=== PATIENT | female | born 2000 | race Caucasian/White ===

== ENCOUNTER 2023-12-01 08:49 | Outpatient (AMB) | payer OTHER, SELFPAY ==
--- OUTSIDE RECORDS SUMMARY | 2023-12-01 08:51 | XMS_ITS | Continuity of Care Document ---
Author Organization [facility] Address [address] [place] [address]- Care Team Providers Care Life Skills Teacher Name Role Phone Abram DE LA O, Minerva Primary Care Physician [phone] Encounter [facility] [place] Date(s): 10/26/19 - 10/26/[address] [address]- [facility] Discharge Disposition: A-D/C Walkout Attending Physician: Not on Staff, Attending MD Admitting Physician: Not on Staff, Admitting MD Referring Physician: Not on Staff, Referring MD Allergies, Adverse Reactions, Alerts Substance Reaction Severity Status lidocaine Active Milk Products Active Other Environmental Allergy 1 Active Coconut Active 1Nitrile Medications ibuprofen 200 mg oral tablet 4 tablets, By Mouth, Every 6 hours, Refills 0, Maintenance, 05/31/19 8:35:00 EDT Start Date: 05/31/19 Status: Ordered ondansetron 4 mg oral tablet, disintegrating 1 tablet = 4 mg, By Mouth, Every 8 hours, PRN as needed for nausea/vomiting, # 6 tablet, 0 Refills,Maintenance, 06/01/19 20:44:00 EDT, DIS Tablet, [facility], 163, cm, 06/01/19 19:48:00 EDT, Height, 117.9, kg, 06/01/19 19:48:00 EDT, Dry... Start Date: 06/01/19 Stop Date: 06/03/19 Status: Ordered Vital Signs Most recent to oldest [Reference Range]: 1 2 3 Weight 115.3 kg (10/26/19 8:10 PM) 115.3 kg (10/26/19 8:04 PM) 115.3 kg (10/26/19 8:03 PM) Oxygen Saturation [94-100 %] 100 % (10/26/19 8:04 PM) 96 % (10/26/19 8:01 PM) Pulse Rate [55-90 bpm] 83 bpm (10/26/19 8:04 PM) 85 bpm (10/26/19 8:01 PM) Blood Pressure [90-138/55-84 mm Hg] 148/79mm Hg *H* (10/26/19 8:04 PM) Respiratory Rate [16-30 br/min] 20 br/min (10/26/19 8:04 PM) 18 br/min (10/26/19 8:01 PM) Temperature [96.8-100.4 DegF] 98.5 DegF (10/26/19 8:04 PM) Mode of Delivery (Oxygen) Room air (10/26/19 8:04 PM) Room air (10/26/19 8:01 PM) Blood pressure sites Arm, right (10/26/19 8:04 PM) Temperature Route Oral (10/26/19 8:04 PM) Dry Weight 115.3 kg (10/26/19 8:10 PM) 115.3 kg (10/26/19 8:04 PM) 115.3 kg (10/26/19 8:03 PM) Weight Obtained Via Standing scale (10/26/19 8:03 PM) Dry Weight Obtained Via Standing scale (10/26/19 8:03 PM) Social History Social History Type Response Smoking Status Never (less than 100 in lifetime) entered on: 05/31/19 Sex
--- OUTSIDE RECORDS SUMMARY | 2023-12-01 08:51 | XMS_ITS | Continuity of Care Document ---
Author Organization [facility] Address [address] [place] [phone]- Care Team Providers Care Superintendent Storage Area Name Role Phone Minerva Valverde NP Primary Care Physician Encounter [facility] [place] Date(s): 08/12/19 - 08/12/[address] [address]- [facility] Encounter Diagnosis Right hand weakness(Final) - 08/12/19 Discharge Disposition: A-D/C Home Attending Physician: Jodi Donald MD Admitting Physician: Jodi Donald MD Referring Physician: Not on Staff, Referring [...] oldest [Reference Range]: 1 2 3 Weight 121.7 kg (08/12/19 11:20 AM) 121.7 kg (08/12/19 8:05 AM) 121.7 kg (08/12/19 7:18 AM) Oxygen Saturation [94-100 %] 100 % (08/12/19 11:20 AM) 99 % (08/12/19 8:05 AM) 100 % (08/12/19 7:18 AM) Pulse Rate [55-90 bpm] 74 bpm (08/12/19 11:20 AM) 85 bpm (08/12/19 8:05 AM) 95 bpm *H* (08/12/19 7:18 AM) Blood Pressure [90-138/55-84 mm Hg] 129/70mm Hg (08/12/19 11:20 AM) 157/81mm Hg *H* (08/12/19 8:05 AM) 182/77mm Hg *H* (08/12/19 7:18 AM) Respiratory Rate [16-30 br/min] 18 br/min (08/12/19 11:20 AM) 16 br/min (08/12/19 8:05 AM) 24 br/min (08/12/19 7:18 AM) Temperature [96.8-100.4 DegF] 97.8 DegF (08/12/19 11:20 AM) 98.5 DegF (08/12/19 8:05 AM) 98.1 DegF (08/12/19 7:18 AM) Mode of Delivery (Oxygen) Room air (08/12/19 11:20 AM) Room air (08/12/19 8:05 AM) Room air (08/12/19 7:18 AM) Blood pressure sites Arm, right (08/12/19 11:20 AM) Leg, left (08/12/19 8:05 AM) Leg, left (08/12/19 7:18 AM) Temperature Route Oral (08/12/19 11:20 AM) Oral (08/12/19 8:05 AM) Oral (08/12/19 7:18 AM) Dry Weight 121.7 kg (08/12/19 11:20 AM) 121.7 kg (08/12/19 8:05 AM) 121.7 kg (08/12/19 7:18 AM) Weight Obtained Via Standing scale (08/12/19 1:01 AM) Dry Weight Obtained Via Standing scale (08/12/19 1:01 AM) Social History Social History Type Response Smoking Status Never (less than 100 in lifetime) entered on: 05/31/19 Sex
--- NOTE | 2023-12-01 09:08 | AM.OFFWIN_ITS ---
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 Started Wednesday Patient Tobacco Use Status: Never used Tobacco Allergies lidocaine Allergy (Intermediate, Verified 12/01/23 09:15) Tremors Do you need a note to return to daycare/school/sports/work: Yes HPI HPI Comments History of Present Illness Details Patient is a 23-year-old female with a past medical history of asthma complaining of a cough which she states is both dry and productive at times, head congestion, a sore throat like she is ?swallowing glass? and body aches on and off as well as some diarrhea. She denies anything bloody or black in her diarrhea, she also denies fevers, chills, nausea or vomiting or shortness of breath. She has not had to use her inhaler more than necessary and states she is actually out of her inhaler and is requesting a prescription for a new 1. She states she has been managing her symptoms with NyQuil because that seems to help her be able to sleep at night. 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 [facility] Social History Patient Tobacco Use Status: Never used Tobacco Review of Systems Const All systems reviewed & are unremarkable except as noted in HPI and below Physical Exam Vital Signs: Last Vital Signs Temp 98.0 F 12/01/23 09:11 Pulse 87 12/01/23 09:11 BP 118/70 12/01/23 09:11 Pulse Ox 97 12/01/23 09:11 Oxygen Delivery Method Room Air 12/01/23 09:11 BMI result Body Mass Index 29.3 Const General: cooperative, healthy appearing, comfortable and no acute distress Orientation/consciousness: patient oriented x3 Limitations: no limitations HEENT Head: Yes normal to inspection Ears: hearing grossly normal bilaterally, external ears normal and TM's normal bilaterally General nose exam: Normal external nose present, Normal nares present and No nasal discharge present Face and sinus: Yes normal facial exam and Yes sinuses nontender Mouth: Normal oral and palatal mucosa present and moist mucous membranes Throat: Yes tonsils normal, Yes uvula midline and Yes posterior oropharynx abnormal (Erythema) Eyes General: appearance normal, both eyes and all related structures Neck Neck: Yes normal visual inspection Resp Effort & Inspection: normal respiratory effort, able to speak in complete sentences, no respiratory distress, not tachypneic, no tripod positioning and no use of accessory muscles Auscultation: clear to auscultation bilaterally Cardio Rate: regular rate Rhythm: regular rhythm Heart sounds: normal S1 and S2 Skin General skin exam: no rashes or lesions noted Neuro General: patient oriented x3 Extrem General: Yes normal to inspection and Yes no clubbing, cyanosis or edema Results AMB Rapid Strep AMB Rapid Strep Negative Last Edit by Aleksandar Huerta CMA on 12/01/23 09:26 Assessment & Plan Assessment & Plan (1) URI (upper respiratory infection): Code(s): J06.9 - Acute upper respiratory infection, unspecified Plan: Rapid strep in office is negative. Vital signs are stable, patient is well- appearing, lungs are clear, likely a viral upper respiratory infection. Sent for flu COVID and RSV testing. Plan See above Orders: Orders AMB Rapid Strep Screen Today Z13.9 - Encounter for screening, unspecified SARS-CoV2/FLU/RSV Today J06.9 - Acute upper respiratory infection, unspecified Medications: New albuterol sulfate 90 mcg/actuation (Ventolin HFA) 2 puffs inhalation Q4-6H PRN 8.5 grams 0RF shortness of breath or wheezing Coding Level of Care Code New Pt Level 3 (87784) Diagnoses URI (upper respiratory infection) J06.9
[2023-12-01 09:11] VITALS: BP 118/70; PULSE 87; TEMP 36.7; O2SAT 97; BMI 29.3
== END 2023-12-01 12:49 | disposition home or self-care (01) ==
PROVIDERS: PCP Pediatrics; Visit Provider Physician Assistant
DX: Z13.9 Encounter for screening, unspecified (principal); J06.9 Acute upper respiratory infection, unspecified

== ENCOUNTER 2023-12-01 08:49 | Outpatient (REF) | payer OTHER, SELFPAY ==
[2023-12-01 11:41] LABS: Influenza A PCR NEGATIVE (Negative); Influenza B PCR NEGATIVE (Negative); Resp Syncy Virus RNA Qual PCR NEGATIVE (Negative); SARS COV2 PCR INHOUSE NEGATIVE (Negative)
== END 2023-12-01 08:50 | disposition home or self-care (01) ==
LOC: HO.LAB 08:49
PROVIDERS: PCP Pediatrics; Visit Provider Physician Assistant
DX: J06.9 Acute upper respiratory infection, unspecified (principal)
CPT/HCPCS: 0241U; 87880

== ENCOUNTER 2024-03-09 09:01 | Outpatient (REF) | payer OTHER, SELFPAY ==
[2024-03-09 14:25] LABS: Influenza A PCR NEGATIVE (Negative); Influenza B PCR NEGATIVE (Negative); Resp Syncy Virus RNA Qual PCR NEGATIVE (Negative); SARS COV2 PCR INHOUSE NEGATIVE (Negative)
== END 2024-03-09 09:02 | disposition home or self-care (01) ==
LOC: HO.LAB 09:01
PROVIDERS: PCP Pediatrics; Visit Provider Registered Nurse
DX: J06.9 Acute upper respiratory infection, unspecified (principal)
CPT/HCPCS: 0241U

== ENCOUNTER 2024-03-09 09:01 | Outpatient (AMB) | payer OTHER, SELFPAY ==
--- NOTE | 2024-03-09 09:19 | MHC.OFFWIV ---
Intake Vital Signs 03/09/24 09:20 Height 5 ft 4 in Weight 175 lb BMI 30.0 BP 138/80 Blood Pressure Location Rt brachial Position Sitting Pulse 85 Pulse Source Pulse Oximeter Temp 99.0 F Temp Source Oral Pulse Oximetry (%) 98 Oxygen Delivery Method Room Air Intake Visit Reasons: EP congestion, vomiting, flu symptoms Intake Note: Patient here for congestion,body aches, hot flashes that has been present for 1 week. Patient Tobacco Use Status: Never used Tobacco Allergies lidocaine Allergy (Intermediate, Verified 03/09/24 09:21) Tremors Do you need a note to return to daycare/school/sports/work: Yes HPI EP congestion, vomiting, flu symptoms HPI Details This note is constructed using voice recognition software. While every effort has been made to ensure accuracy, head of insight errors may have been included. The patient is a 23 year old female who presents to the clinic today with congestion, body aches, subjective fever, nausea and vomiting for the past week. She has not had any vomiting since yesterday, but does still have nausea. She denies shortness of breath, does have cough. She is taking a store brand Mucinex to help with secretions which seemed to help a bit. She also notes some mild epigastric tenderness, which seems to be worse after all the vomiting that she did. She had an prescription of Zofran which she has been trying which seems to help. She would like a refill of the Zofran. Additionally she requests a refill of her albuterol inhaler, which is , as she has a history of respiratory symptoms, which have not been present on this illness. Her sick exposures include her boyfriend whom she lives with who is present for visit today as well. [facility] Social History Patient Tobacco Use Status: Never used Tobacco Review of Systems Const All systems reviewed & are unremarkable except as noted in HPI and below Physical Exam Vital Signs: Last Vital Signs Temp 99.0 F 03/09/24 09:20 Pulse 85 03/09/24 09:20 BP 138/80 03/09/24 09:20 Pulse Ox 98 03/09/24 09:20 Oxygen Delivery Method Room Air 03/09/24 09:20 BMI result Body Mass Index 30.0 Const General: cooperative, healthy appearing, comfortable and no acute distress Orientation/consciousness: patient oriented x3 Limitations: no limitations HEENT Head: Yes normal to inspection Ears: hearing grossly normal bilaterally, external ears normal and TM's normal bilaterally General nose exam: Normal external nose present, Normal nares present and No nasal discharge present Face and sinus: Yes normal facial exam and Yes sinuses nontender Mouth: Normal oral and palatal mucosa present and moist mucous membranes Throat: Yes tonsils normal, Yes uvula midline and Yes posterior oropharynx abnormal (Erythema) Eyes General: appearance normal, both eyes and all related structures Neck Neck: Yes normal visual inspection Resp Effort & Inspection: normal respiratory effort, able to speak in complete sentences, Actively coughing, no respiratory distress, not tachypneic, no tripod positioning and no use of accessory muscles Auscultation: clear to auscultation bilaterally Cardio Jugular venous distension: no JVD Rate: regular rate Rhythm: regular rhythm Heart sounds: S1 normal heart sound present, S2 normal heart sound present, no click, no gallops, no murmurs and no rubs GI Inspection: Yes normal to inspection Palpation (GI): Soft to palpation and Tenderness to palpation present (GI) in the epigastrum Percussion: Yes normal to percussion Auscultation: normal bowel sounds Skin General skin exam: no rashes or lesions noted, elasticity normal and turgor normal Neuro General: patient oriented x3 Extrem General: Yes normal to inspection and Yes no clubbing, cyanosis or edema Assessment & Plan Assessment & Plan (1) URI (upper respiratory infection): Code(s): J06.9 - Acute upper respiratory infection, unspecified Qualifiers: URI type: unspecified URI Qualified Code(s): J06.9 - Acute upper respiratory infection, unspecified Plan: Viral swab obtained to rule out Covid, Influenza, and RSV based on symptoms. Advised mask wearing while symptomatic and quarantine per current CDC guidelines. Reviewed at home support methods including hydration, humidification, vix vapor rub, sinus rinse, and otc treatment options. Discussed treatment with antiviral therapy for covid with paxlovid and with Tamiflu for influenza, including appropriate use and side effects, and need to start medication within 5 day of symptom onset, preferably within 48 hours of symptom onset. Patient is outside of treatment window timeline for antiviral therapy. Prescription sent for Zofran for symptomatic management of nausea, and albuterol in the event she should develop any respiratory symptoms as she needed a refill. Advised follow up with worsening symptoms such as dyspnea at rest, which would require emergent evaluation. (2) Acid reflux: Code(s): K21.9 - Gastro-esophageal reflux disease without esophagitis Qualifiers: Esophagitis presence: without esophagitis Qualified Code(s): K21.9 - Gastro-esophageal reflux disease without esophagitis Plan: Likely secondary to viral illness. Advised avoidance acidic foods, carbonated beverages, large meals, or anything to eat or drink within 2-3 hours of lying down. Consider trial famotidine for at least 2 weeks, for symptomatic management and then p.r.n. after that. Advised patient to follow up worsening or failure to resolve. Plan See above for full details and plan. Orders: Orders SARS-CoV2/FLU/RSV Today J06.9 - Acute upper respiratory infection, unspecified Medications: New ondansetron 4 mg PO Q8H PRN 15 tabs 0RF nausea and vomiting Refilled albuterol sulfate 90 mcg/actuation (Ventolin HFA) 2 puffs inhalation Q4-6H PRN 8.5 grams 0RF shortness of breath or wheezing Coding Level of Care Code Est Pt Level 3 (54425) Diagnoses Upper respiratory tract infection, unspecified type J06.9 URI type: unspecified URI Gastroesophageal reflux disease without esophagitis K21.9 Esophagitis presence: without esophagitis
[2024-03-09 09:20] VITALS: BP 138/80; PULSE 85; TEMP 37.2; O2SAT 98
== END 2024-03-09 10:08 | disposition home or self-care (01) ==
PROVIDERS: PCP Pediatrics; Visit Provider Registered Nurse
DX: J06.9 Acute upper respiratory infection, unspecified (principal); K21.9 Gastro-esophageal reflux disease without esophagitis

== ENCOUNTER 2024-03-29 08:10 | Outpatient (AMB) | payer OTHER, SELFPAY ==
--- OUTSIDE RECORDS SUMMARY | 2024-03-29 08:13 | XMS_ITS | Encounter Summary ---
Author Organization [facility] Address [address] [place] [phone] Phone Care Team Providers Care Electrical Systems Designer Name Role Phone Lashell Cage MD Primary Care Provider [phone] Encounter Details Date Type Department Care Team (Late st Contact Info) Description 04/08/2016 Documentation [facility] [place] [address] [place] [address] Family Medicine, Physician [address] [place] [address] Social History Tobacco Use Types Packs/Day Years Used Date Smoking Tobacco: Never Comments:Never smoker Comments Unknown Sex and Gender Information Value Date Recorded Sex Assigned at Not on file Legal Sex Female 5:16 PM EDT Gender Identity Not on file Sexual Orientation Not on file documented as of this encounter Plan of Treatment Not on file documented as of this encounter Visit Diagnoses Not on filedocumented in this encounter Care Teams Electrical Systems Designer Relationship Specialty Start Date End Date Lashell Cage MD PCP - General Pediatrics 10/06/19 06/18/22 documented as of this encounter
--- OUTSIDE RECORDS SUMMARY | 2024-03-29 08:13 | XMS_ITS | Clinical Summary ---
Author Organization [facility] [address] [place] [address] [place] [phone] Phone Care Team Providers Care Carroting Machine Offbearer Name Role Phone Kary Elias Primary Care Provider Allergies Active Allergy Reactions Criticality Noted Date Comments Coconut Oil 09/13/2020 Lidocaine 09/13/2020 Other Reaction(s): OTHER Tremors and body aches from lidocaine patch Other 09/13/2020 Gloves NITRILE Medications Medication Sig Dispensed Refills Start Date End Date Status fluconazole (DIFLUCAN) 150 mg tablet Take one tablet every 3 days for 3 doses 08/18/2023 Active clotrimazole-betametha sone (LOTRISONE) 1-0.05 % cream Twice daily for two weeks. 08/18/2023 08/12/2024 Active doxycycline (MONODOX) 100 mg capsule 12/30/2021 Active ACETAMINOPHEN ORAL Take by mouth. Ac tive albuterol HFA (PROAIR HFA ; PROVENTIL HFA ; VENTOLIN HFA) 90 mcg/actuation inhaler Inhale 2 Puffs into the lungs every 6 hours as needed for Cough or Wheezing. INHALE 2 PUFFS 4 TIMES A DAY NEEDED FOR WHEEZING 09/25/2021 Active clotrimazole (LOTRIMIN) 1 % cream Apply bid to affected area 09/25/2021 Active ferrous sulfate 325 mg (65 mg elemental iron) tablet Take by mouth. Active medroxyPROGESTERone 150 mg/mL injectionIndications:E ncounter for contraceptive management, unspecified type Inject 1 mL (150 mg total) into the shoulder, thigh, or buttocks every 3 (three) months. 1 mL 2 01/11/2024 Active Active Problems Problem Noted Date Diagnosed Date Cutaneous candidiasis 08/18/2023 Vaginal discharge 08/18/2023 Asthma 11/20/2020 Lumbar spine scoliosis 11/20/2020 Encounters Date Type Department Care Team Description 01/14/2024 4:00 PM EST Clinical Support Obstetrics and Gynecology [address] [phone] Surveillance for Depo-Provera contraception (Primary Dx) from Last 3 Months Immunizations Name Administration Dates Next Due HPV 9-valent (Gardisil) 9yo to less than 46yo 07/16/2021 Influenza Quadravalent, MDCK , 0.5ml, preservative free (Flucelvax) 6mo and older 11/02/2019,10/20/2018 Influenza trivalent, with pr eservative (Fluzone; Afluria) 6mo and older 02/25/2022,01/20/2018,06/02/2017,01/08 Influenza, Unspecified 11/06/2020,04/02/2015 Meningococcal B, Recombinant (Trumenba) 16yo to less than 24yo 10/26/2018 Meningococcal MCV4P 06/02/2017 Surgical History Surgery Date Site/Laterality Comments KNEE SURGERY 2014 Right PROCEDURE: HISTORICAL KNEE SURGERY WISDOM TOOTH EXTRACTION Bilateral PROCEDURE: HISTORICAL WISDOM TEETH EXTRACTION Medical History Medical History Date Comments Patient denies medical problems DX:Patient denies medical problems Hx of migraines DX:Hx of migrain es; COMMENT: With Aura Family History Medical History Relation Name Comments Hypertension Mother Breast cancer Mother's side 2 great aunts Leukemia Other cousins Colon cancer Neg Hx Ovarian cancer Neg Hx Uterine cancer Neg Hx Relation Name Status Comments Maternal Grandfather Alive Maternal Grandmother Alive Mother Alive Mother's side Alive Other Paternal Grandfather Paternal Grandmother Alive Social History Tobacco Use Types Packs/Day Years Used Date Smoking Tobacco: Never Smokeless Tobacco: Never Alcohol Use Standard Drinks/Week Comments Not Currently 0 (1 standard drink = 0.6 oz pur e alcohol) Sex and Gender Information Value Date Recorded Sex Assigned at Not on file Gender Identity Not on file Sexual Orientation Not on file Job Start Date Occupation Industry Not on file Not on file Not on file Obstetrics History Last Filed Vital Signs Vital Sign Reading Time Taken Comments Blood Pressure 120/72 08/18/2023 4:08 PM EDT Pulse 89 08/18/2023 4:08 PM EDT Temperature - - Respiratory Rate - - Oxygen Saturation - - Inhaled Oxygen Concentration - - Weight 75.6 kg (166 lb 9.6 oz) 08/18/2023 4:08 P M EDT Height 162.6 cm (5' 4 ) 08/18/2023 4:08 PM EDT Body Mass Index 28.6 08/18/2023 4:08 PM EDT Plan of Treatment Health Maintenance Due Date Last Done Comments DTaP,Tdap,and Td Vaccines (7 - Td or Tdap) 10/11/2021 10/12/2011, 12/26/2003, 06/07/2001, Additional history exists Cholesterol Screening (Lipid Panel) 02/08/2022 Depression Screening 02/08/2022 HIV Screening 02/08/2022 Hepatitis C Screening 02/08/2022 Social Influencers of Health Screening 02/08/2022 Gonorrhea/Chlamydia Screening 07/16/2022 07/16/2021 COVID-19 Vaccine ( season) 2023 Influenza Vaccine (#1) 2023 , 12/09/2020, 11/06/2020, Additional history exists Cervical Cancer Screening: Pap Smear 12/31/2024 12/31/2021 Hepatitis B Vaccines Completed 09/14/2000, 01/07/2000, 1999 HIB Vaccines Completed 03/09/2001, 06/06, 04/22/2000, Additional history exists IPV Vaccines Completed 12/26/2003, 04/2001, 04/22/2000, Additional history exists MMR Vaccines Completed 12/26/2003, 11/30/2000 Varicella Vaccines Completed 10/06/2010, 11/30/2000 Hepatitis A Vaccines Completed 12/20/2013, 10/07/19 Meningococcal ACWY Vaccine Completed 06/02/2017, HPV Vaccines Completed 07/16/2021, 09/06, 07/29/2020, Additional history exists Pneumococcal Vaccine: Pediatrics (0 to 5 Years) and At-Risk Patients (6 to 64 Years) Completed 01/05/2023, 03/09/2001, 06/15/2000, Additional history exists RSV Immunization Patients Under 20 months Aged Out No longer eligible based on patient's age to complete this topic Procedures Procedure Name Priority Date/Time Associated Diagnosis Comments PAP SMEAR Routine 12/31/2021 GONORRHEA/CHLAMYDIA SCRREENING Routine 07/16/2021 from Last 3 Months or Most Recently Relevant to Health Maintenance Results * Pap Smear (12/31/2021) Pap smear abstracted; negative Historical Provider MD DAXA Dietz * Gonorrhea/Chlamydia Screening (07/16/2021) Gonorrhea/Chla mydia Screening abstracted Historical Provider MD DAXA Dietz from Last 3 Months or Most Recently Relevant to Health Maintenance Care Teams Carroting Machine Offbearer Relationship Specialty Start Date End Date Kary Elias PA [address] [place] [address] PCP - General 07/21/23
--- OUTSIDE RECORDS SUMMARY | 2024-03-29 08:13 | XMS_ITS | Encounter Summary ---
Author Organization [facility] Address [address] [place] [phone] Phone Care Team Providers Care Environmental Geologist Name Role Phone Lashell Cage MD Primary Care Provider [phone] Encounter Details Date Type Department Care Team (Late st Contact Info) Description 06/17/2015 Documentation [facility] [place] Family Medicine [address] [place] [address] Family Medicine, Physician [address] [place] [address] Social History Tobacco Use Types Packs/Day Years [...] on filedocumented in this encounter Care Teams Environmental Geologist Relationship Specialty Start Date End Date Lashell Cage MD PCP - General Pediatrics 10/06/19 06/18/22 documented as of this encounter
--- OUTSIDE RECORDS SUMMARY | 2024-03-29 08:13 | XMS_ITS | Encounter Summary ---
Author Organization [facility] Address [address] [place] [phone] Phone Care Team Providers Care Paediatric Physiotherapist Name Role Phone Lashell Cage MD Primary Care Provider [phone] Encounter Details Date Type Department Care Team (Late st Contact Info) Description 04/20/2016 Documentation [facility] [place] [address] [place] [address] Family Medicine, Physician [address] [place] [address] Social History Tobacco Use Types Packs/Day Years [...] on filedocumented in this encounter Care Teams Paediatric Physiotherapist Relationship Specialty Start Date End Date Lashell Cage MD PCP - General Pediatrics 10/06/19 06/18/22 documented as of this encounter
--- OUTSIDE RECORDS SUMMARY | 2024-03-29 08:13 | XMS_ITS | Clinical Summary ---
Author Organization [facility] Address [address] [place] [phone] Phone Care Team Providers Care Putty Mixer Name Role Phone Unavailable Primary Care Provider Unavailabl e Allergies Active Allergy Reactions Criticality Noted Date Comments Coconut (Cocos Nucifera) Other (see comments) Medium 1 03/26/2018 Food reaction Coconut Fragrance Hives Medium 01/24/2019 Lactose Intolerance (Gi) 06/02/2017 Other 10/06/2019 Nitrile gloves Medications Etonogestrel (NEXPLANON) 68 MG implant Inject under the skin. Active Active Problems Problem Noted Date Diagnosed Date Nexplanon in place 09/02/2019 Body mass index > 99% for ag e, obese child, tertiary care intervention 09/23/2009 Immunizations Name Administration Dates Next Due DTaP 5 12/26/2003, 2,06/15/2000,04/22,02/12/2000 HPV, Quadrivalent 10/18/2012,12/15/2011,10/12/19 12 Hep A, ped/adol 12/20/2013,10/06/2010 Hep B, ped/adol 09/14/2000,01/07/2000,1999 Hib (PRP-T) 03/09/2001, 1,04/22/2000,02/11 IPV 12/26/2003, 2,04/22/2000,02/11 Influenza, injectable, quadrivalent 01/09/2016 Influenza, injectable, quadr ivalent, preservative free 10/20/2018,01/20/2018,06/02/2017,12/20 Influenza, injectable, trivalent 02/17/2006 Influenza, intranasal, quadrivalent 04/02/2015 Influenza, intranasal, trivalent 11/27/2011 MMR 12/26/2003,11/30/2000 Meningococcal B Trumenba 10/26/2018 Meningococcal Conj (Menactra) MCV4P 06/02/2017,0 10/12/2011 Pneumococcal Conjugate 03/09/2001,2000,04/22/2000,02/11 Tdap 10/12/2011 Varicella 10/06/2010,11/30/2000 Family History Medical History Relation Name Comments No Known Problems Maternal Grandmother No Known Problems Mother Ashli Galarza Relation Name Status Comments Father Avinash Gatica Alive Maternal Grandmother Alive Materna l grandmother: Asthma Mother Ashli Galarza Alive Mother: Asthm a Other Family history of Obesity, Family history of Diabetes mellitus, Family history of Autism Social History Tobacco Use Types Packs/Day Years Used Date Smoking Tobacco: Never Smokeless Tobacco: Current Comments:Never smoker Hunger/Food Answer Date Recorded In the last 12 months, did y ou or your family ever eat less than you felt you should because there wasn't enough money for food? No 10/26/2018 Stable Housing Answer Date Recorded Are you worried that in the next 2 months you may not have stable housing? No 10/26/2018 Transportation Concerns Answer Date Rec orded In the last 12 months, have you or your family ever had to go without healthcare because you didn't have a way to get there? No 10/26/2018 Hazards in Home Answer Date Recorded Think about the place you li ve. Do you have problems with any of the following? Pests (mice or roaches), mold, no/not working smoke detectors, water leaks, no window guards. No 2018 Financing Utilities Answer Date Recorde d In the last 12 months, has t he electric, gas, oil, or water company threatened to shut off your services in your home? No 10/26/2018 Safety at Home Answer Date Recorded Are you or your family worried about feeling saf e in your home? No 10/26/2018 Outside Support Answer Date Recorded Do you feel that you need mo re support from other people or programs to help you care for yourself or your family? No 10/26/2018 Understanding Health Concerns Answer Da te Recorded Do you need help understandi ng your or your child's healthcare needs (diagnosis, medications, plan, etc.)? No 10/26/2018 Financing Health Concerns Answer Date R ecorded In the last 12 months, was t here a time when your child needed to see a doctor or get medications or supplies but could not because of cost? No 10/26/2018 Missing School or Work Answer Date Rupert rded Did you or your child miss s chool or work because of a health problem that could have been avoided? No 10/26/2018 Comments No Sex and Gender Information Value Date Recorded Sex Assigned at Not on file Legal Sex Female 5:16 PM EDT Gender Identity Not on file Sexual Orientation Not on file Last Filed Vital Signs Vital Sign Reading Time Taken Comments Blood Pressure 130/80 10/06/2019 3:12 PM EDT Pulse 108 10/06/2019 3:12 PM EDT Temperature 36.1 ??C (96.9 ??F) 10/24/2019 2:27 PM ED T Respiratory Rate 20 10/04/2018 3:40 PM EDT Oxygen Saturation 99% 01/24/2019 4:14 PM EST Inhaled Oxygen Concentration - - Weight 116 kg (255 lb 1 oz) 10/24/2019 2:27 PM E DT Height 161.3 cm (5' 3.5 ) 10/26/2018 5:27 PM EDT Body Mass Index 44.47 10/26/2018 5:27 PM EDT Plan of Treatment Health Maintenance Due Date Last Done Comments Men B Vaccine (2 of 2 - Trum enba SCDM 2-dose series) 04/28/2019 10/26/2018 DTaP,Tdap,and Td Vaccines (7 - Td or Tdap) 10/11/2021 10/12/2011, 12/26/2003, 06/07/2001, Additional history exists Influenza Vaccines (#1) 2023 12/10/19, 11/02/2019, 10/20/2018, Additional history exists COVID-19 Vaccine ( - 2023-2 5 season) 2023 Hepatitis B Vaccines Completed 09/14/2000, 01/07/2000, 1999 HIB Vaccines Completed 03/09/2001, 06/06, 04/22/2000, Additional history exists Pneumococcal Vaccine Completed 03/09/2001, 06/15/2000, 04/22/2000, Additional history exists IPV Vaccines Completed 12/26/2003, 04/2001, 04/22/2000, Additional history exists MMR Vaccines Completed 12/26/2003, 11/30/2000 Varicella Vaccines Completed 10/06/2010, 11/30/2000 Hepatitis A Vaccines Completed 12/20/2013, 10/07/19 11 Meningococcal Vaccine Completed 06/02/2017, 012 HPV Vaccines Completed 07/16/2021, 09/06, 07/29/2020, Additional history exists Procedures * Due to [place] [employer] law, this organization might not be sharing sensitive test results. Procedure Name Priority Date/Time Associated Diagnosis Comments CHLAMYDIA AND GONORRHEA, AMPLIFIED Routine 10/26/2018 5:59 PM EDT Screen for sexually transmitted diseases from Last 3 Months or Most Recently Relevant to Health Maintenance Results * Due to [place] [employer] law, this organization might not be sharing sensitive test results. * Chlamydia and Gonorrhoea, Amplified (10/26/2018 5:59 PM EDT) Chlamydia Trachomatis, DNA Probe NEGATIVE (NEG) [facility] Comment: No Chlamydia Trachomatis RNA detected in this patient's sample ? (REFERENCE RANGE/NORMAL VALUE: NOT DETECTED) ? Note: This test uses starcher and tenter range feeder- mediated amplification method to detect rRNA from C. Trachomatis URINE GC AMP PROBE NEGATIVE (NEG) [facility] Comment: No Neisseria Gonorrhoeae RNA detected in this patient's sample ? (REFERENCE RANGE/NORMAL VALUE: NOT DETECTED) ? NOTE: This test uses starcher and tenter range feeder-mediated amplification method to detect rRNA from N.Gonorrhoeae. A negative result does not preclude infection. In the case of a negative urine result, testing of an endocervical(female) or urethral (male) specimen is recommended if there is high clinical suspicion of infection. Due to very high sensitivity of Nucleic Acid Amplification Test, false positive results may occur. Therefore, specimen handling is extremely important. In patients in whom the disease is unlikely, additional sample for testing should be considered after an initial positive result. The performance characteristics of this test have not been evaluated in children. The Aptima Combo2 assay is not intended for the evaluation of suspected sexual abuse or for other medico-legal indications. The ordering provider should assess if the patient had consensual sex without risk of sexual abuse. Consult the [facility] if needed. Contact phone number . Therapeutic failure or success cannot be determined with the Aptima Combo2 assay since nucleic acid may persist following appropriate antimicrobial therapy. The Centers for Disease Control and Prevention (CDC) recommends confirmatory retesting using culture or a different nucleic acid amplification test when positive results occur, if indicated. Testing performed or reported by [facility], a Service of [facility], [address] [place] [address] Urine 10/26/2018 5:59 PM EDT 10/26/2018 8:16 PM EDT Andressa Valverde NP LAB MICROBIOLOGY - GENERAL OR DERABLES Final Result [facility] from Last 3 Months or Most Recently Relevant to Health Maintenance Insurance [facility] PPO
--- OUTSIDE RECORDS SUMMARY | 2024-03-29 08:13 | XMS_ITS | Encounter Summary ---
Author Organization [facility] Address [address] [place] [address] Phone Care Team Providers Care Bushing Press Operator Name Role Phone Lashell Cage MD Primary Care Provider [phone] Encounter Details Date Type Department Care Team (Late st Contact Info) Description 10/22/2016 Conversion Encounter [facility] - [address] [address] Social History Tobacco Use Types Packs/Day Years [...] on filedocumented in this encounter Care Teams Bushing Press Operator Relationship Specialty Start Date End Date Lashell Cage MD PCP - General Pediatrics 10/06/19 06/18/22 documented as of this encounter
--- OUTSIDE RECORDS SUMMARY | 2024-03-29 08:13 | XMS_ITS | Encounter Summary ---
Author Organization [facility] Address [address] [place] [address] Phone Care Team Providers Care Commercial Agent Name Role Phone Lashell Cage MD Primary Care Provider [phone] Encounter Details Date Type Department Care Team (Late st Contact Info) Description 07/30/2016 Documentation [facility] [place] Family Medicine [address] [place] [address] Family Medicine, Physician [address] [place] [address] Social History Tobacco Use Types Packs/Day Years [...] on filedocumented in this encounter Care Teams Commercial Agent Relationship Specialty Start Date End Date Lashell Cage MD PCP - General Pediatrics 10/06/19 06/18/22 documented as of this encounter
--- OUTSIDE RECORDS SUMMARY | 2024-03-29 08:13 | XMS_ITS | Encounter Summary ---
Author Organization [facility] Address [address] [place] [address] Phone Care Team Providers Care System Development Engineer Name Role Phone Lashell Cage MD Primary Care Provider [phone] Encounter Details Date Type Department Care Team (Late st Contact Info) Description 07/30/2016 Documentation [facility] [place] Family Medicine [address] [place] [address] Family Medicine, Physician [address] [place] [address] Social History Tobacco Use Types Packs/Day Years [...] on filedocumented in this encounter Care Teams System Development Engineer Relationship Specialty Start Date End Date Lashell Cage MD PCP - General Pediatrics 10/06/19 06/18/22 documented as of this encounter
--- OUTSIDE RECORDS SUMMARY | 2024-03-29 08:13 | XMS_ITS | Encounter Summary ---
Author Organization [facility] Address [address] [place] [address] Phone Care Team Providers Care Res Habilitation Assistant Name Role Phone Lashell Cage MD Primary Care Provider [phone] Encounter Details Date Type Department Care Team (Late st Contact Info) Description 05/13/2016 [place] [facility] [place] [address] [place] [address] Family Medicine, Physician [address] [place] [address] Social History Tobacco Use Types Packs/Day Years [...] on filedocumented in this encounter Care Teams Res Habilitation Assistant Relationship Specialty Start Date End Date Lashell Cage MD PCP - General Pediatrics 10/06/19 06/18/22 documented as of this encounter
[2024-03-29 08:14] VITALS: BP 122/80; PULSE 74; TEMP 36.9; O2SAT 98
--- NOTE | 2024-03-29 08:14 | AM.OFFWIN_ITS ---
Intake Vital Signs 03/29/24 08:14 Weight 178 lb BP 122/80 Blood Pressure Location Rt brachial Position Sitting Pulse 74 Pulse Source Pulse Oximeter Temp 98.4 F Temp Source Oral Pulse Oximetry (%) 98 Oxygen Delivery Method Room Air Intake Visit Reasons: EP-sinus issues follow with migrane Intake Note: Patient here for headache, congestion,vomiting, body aches that started Wednesday. Patient Tobacco Use Status: Never used Tobacco Allergies lidocaine Allergy (Intermediate, Verified 03/29/24 08:20) Tremors Do you need a note to return to daycare/school/sports/work: Yes HPI HPI Comments History of Present Illness Details This is a 23-year-old female with no stated past medical history presenting for evaluation of body aches, sinus congestion and cough that has been present for the past 1 month. 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 Patient has been using NyQuil and Mucinex without relief of her discomfort. Patient denies having any fevers, chills, otalgia, pharyngitis, chest pain or shortness of breath. [facility] Social History Patient Tobacco Use Status: Never used Tobacco Review of Systems Const All systems reviewed & are unremarkable except as noted in HPI and below Denies chills, Denies fatigue and Denies fever(s) Eyes Reports no additional complaints ENT Reports no additional complaints, Denies otalgia, Denies nasal discharge, Denies sinus pain, Reports sinus pressure and Denies sore throat Card Denies chest pain and Denies dyspnea Resp Reports cough, Denies dyspnea and Reports wheezing GI Reports no additional complaints Reports no additional complaints Musc Reports no additional complaints Skin/Breast Reports system reviewed and no additional complaints, except as documented Neuro Reports no additional complaints Psych Reports no additional complaints Endo Reports no additional complaints and Denies fatigue Isiah/Lymph Reports no additional complaints Aller/Immun Reports no additional complaints and Reports wheezing Physical Exam Vital Signs: Last Vital Signs Temp 98.4 F 03/29/24 08:14 Pulse 74 03/29/24 08:14 BP 122/80 03/29/24 08:14 Pulse Ox 98 03/29/24 08:14 Oxygen Delivery Method Room Air 03/29/24 08:14 Afebrile, no hypoxia Const General: cooperative, healthy appearing, comfortable, no acute distress, well developed, alert, awake and Physically active; No acute distress Nutritional Appearance: average body habitus Orientation/consciousness: patient oriented x3 Limitations: no limitations HEENT Head: Yes normal to inspection and Yes normocephalic Ears: hearing grossly normal bilaterally, TM's abnormal bilaterally (TMs bulging bilaterally, no erythema) and EAC's normal General nose exam: Normal external nose present Face and sinus: Yes normal facial exam Mouth: Normal oral and palatal mucosa present and moist mucous membranes Throat: Yes posterior oropharynx normal and No postnasal drainage Eyes General: appearance normal, both eyes and all related structures Neck Lymphatic: no lymphadenopathy noted Resp Auscultation: wheezes expiratory wheezes (bases bilaterally, no tachypnea) Cardio Rate: regular rate Rhythm: regular rhythm Neuro General: patient oriented x3 Psych Appearance: grossly normal Mental Status: mental status grossly normal Insight: Good insight present (Psych) Judgement: Good judgement present (Psych) Assessment & Plan Assessment & Plan (1) Bronchitis: Comment: Patient has already tested negative for the viral panel and has expiratory wheezes bilaterally. Patient will be discharged home with prednisone. Code(s): J40 - Bronchitis, not specified as acute or chronic Plan: Prednisone 40 mg daily x5 days; tea with honey for cough and Mucinex as needed. Medications: New prednisone 40 mg (2 x 20 mg) PO DAILY 10 tabs 0RF Coding Level of Care Code Est Pt Level 3 (55556) Diagnoses Bronchitis J40 Time Spent (min) 20
== END 2024-03-29 09:12 | disposition home or self-care (01) ==
PROVIDERS: PCP Pediatrics; Visit Provider Physician Assistant
DX: J40 Bronchitis, not specified as acute or chronic (principal)

== ENCOUNTER → 2024-03-29 08:10 | Outpatient (BNVA) | payer OTHER, SELFPAY | PROVIDERS: PCP Pediatrics; Visit Provider Physician Assistant ==

== ENCOUNTER 2024-04-25 08:34 | Outpatient (AMB) | payer OTHER, SELFPAY ==
--- NOTE | 2024-04-25 08:38 | MHC.OFFWIV ---
Intake Vital Signs 04/25/24 08:43 Height 5 ft 4 in Weight 181 lb BMI 31.1 BP 110/72 Blood Pressure Location Rt brachial Position Sitting Pulse 90 Pulse Source Pulse Oximeter Temp 98.6 F Temp Source Oral Pulse Oximetry (%) 98 Oxygen Delivery Method Room Air Intake Visit Reasons: EP coughed up blood/lblood in vomit/bloody nose Intake Note: Patient here for bloody nose, coughed up a blood clot , vomiting w/blood present. pt states it started last night but this morning it was bad. Patient Tobacco Use Status: Never used Tobacco Allergies lidocaine Allergy (Intermediate, Verified 04/25/24 08:44) Tremors Do you need a note to return to daycare/school/sports/work: Yes HPI HPI Comments History of Present Illness Details History of Present Illness - The patient is a 23-year-old female presenting with epistaxis. - Episodes of nasal bleeding started the previous night and resolved spontaneously after 5 to 10 minutes. - A subsequent morning episode lasted longer (20-30 minutes), with significant active bleeding. - History of iron-deficiency anemia diagnosed in 2019; patient has not adhered to iron supplement regimen due to side effects such as constipation. - Patient describes severe bleeding and noted emesis with bright red blood, absent of clots. - Later expectorated mucus contained a blood clot. - Currently not on anticoagulant therapy. - Bleeding resolved before clinical evaluation. Physical Exam General: Cooperative, healthy appearing, comfortable, no acute distress and well developed Orientation: Patient oriented x3 Limitations: No limitations Head: Normal to inspection Ears: Hearing grossly normal bilaterally Nose: Normal external nose present, no blood noted in nares Face and sinus: Normal facial exam Eyes: Appearance normal, both eyes and all related structures Neck: Normal visual inspection and Yes full ROM Respiratory: Normal respiratory effort and able to speak in complete sentences. Skin: No rashes or lesions noted Neuro: Patient oriented x3 Extremities: Normal to inspection [facility] Social History Patient Tobacco Use Status: Never used Tobacco Review of Systems Const All systems reviewed & are unremarkable except as noted in HPI and below Physical Exam Vital Signs: Last Vital Signs Temp 98.6 F 04/25/24 08:43 Pulse 90 04/25/24 08:43 BP 110/72 04/25/24 08:43 Pulse Ox 98 04/25/24 08:43 Oxygen Delivery Method Room Air 04/25/24 08:43 BMI result Body Mass Index 31.1 Assessment & Plan Assessment & Plan (1) Mild epistaxis: Code(s): R04.0 - Epistaxis Plan: Plan The management plan for the primary concern of epistaxis involved confirming the cessation of bleeding and recommending measures such as saline nasal spray and humidifier use to address the likely anterior nasal bleeding due to environmental dryness. Monitoring for recurrence was advised, and in case of bleeding, she should pinch her nose and lean forward to prevent blood ingestion. Considering her history of iron-deficiency anemia, while ongoing management was deferred to her primary care provider, attention was given to barriers to compliance such as constipation. She was given clear instructions on managing future episodes independently. Patient was informed and verbally consented to the use of an ambient scribe for clinic note documentation during this visit. Coding Level of Care Code New Pt Level 3 (51228) Diagnoses Mild epistaxis R04.0
[2024-04-25 08:43] VITALS: BP 110/72; PULSE 90; TEMP 37; O2SAT 98; BMI 31.1
--- OUTSIDE RECORDS SUMMARY | 2024-04-25 08:57 | XMS_ITS | Encounter Summary ---
Author Organization [facility] Address [address] [place] [address] Phone Care Team Providers Care Poem Writer Name Role Phone Lashell Cage MD Primary Care Provider Encounter Details Date Type Department Care Team (Late st Contact Info) Description 04/20/[address] [facility] [place] [address] [place] [address] Family Medicine, Physician [address] [place] [address] Social History Tobacco Use Types Packs/Day Years [...] on filedocumented in this encounter Care Teams Poem Writer Relationship Specialty Start Date End Date Lashell Cage MD PCP - General Pediatrics 10/06/19 06/18/22 documented as of this encounter
--- OUTSIDE RECORDS SUMMARY | 2024-04-25 08:57 | XMS_ITS | Encounter Summary ---
Author Organization [facility] Address [address] [place] [address] Phone Care Team Providers Care Material Hauler Name Role Phone Lashell Cage MD Primary Care Provider [phone] Encounter Details Date Type Department Care Team (Late st Contact Info) Description 10/22/2016 Conversion Encounter [facility] - [address] [address] Social History Tobacco Use Types Packs/Day Years [...] on filedocumented in this encounter Care Teams Material Hauler Relationship Specialty Start Date End Date Lashell Cage MD PCP - General Pediatrics 10/06/19 06/18/22 documented as of this encounter
--- OUTSIDE RECORDS SUMMARY | 2024-04-25 08:57 | XMS_ITS | Encounter Summary ---
Author Organization [facility] Address [address] [place] [address] Phone Care Team Providers Care Modern And Contemporary Art Curator Name Role Phone Lashell Cage MD Primary Care Provider [phone] Encounter Details Date Type Department Care Team (Late st Contact Info) Description 04/08/2016 Documentation [facility] [place] Medicine [address] [place] [address] Family Medicine, Physician [address] [place] [address] Social History Tobacco Use Types Packs/Day Years [...] on filedocumented in this encounter Care Teams Modern And Contemporary Art Curator Relationship Specialty Start Date End Date Lashell Cage MD PCP - General Pediatrics 10/06/19 06/18/22 documented as of this encounter
--- OUTSIDE RECORDS SUMMARY | 2024-04-25 08:57 | XMS_ITS | Clinical Summary ---
Author Organization [facility] Address [address] [place] [address] Phone Care Team Providers Care Drilling Fluids Specialist Name Role Phone Unavailable Primary Care Provider [...] obese child, tertiary care intervention 09/23/2009 Immunizations Immunization Administration Dates Next Due DTaP 5 12/26/2003, [...] Additional history exists Procedures * Due to [place] [employer] law, this organization might not be sharing sensitive test results. Procedure Name Priority Date/Time Associated Diagnosis Comments CHLAMYDIA AND GONORRHEA, AMPLIFIED Routine 10/26/2018 5:59 PM EDT Screen for sexually transmitted diseases from Last 3 Months or Most Recently Relevant to Health Maintenance Results * Due to [place] [employer] law, this organization might not be sharing sensitive test results. * Chlamydia and Gonorrhoea, Amplified (10/26/2018 5:59 PM EDT) Chlamydia Trachomatis, DNA Probe NEGATIVE (NEG) [facility] Comment: No Chlamydia Trachomatis RNA detected in this patient's sample ? (REFERENCE RANGE/NORMAL VALUE: NOT DETECTED) ? Note: This test uses procedure rn- mediated amplification method to detect rRNA from C. Trachomatis URINE GC AMP PROBE NEGATIVE (NEG) [facility] Comment: No Neisseria Gonorrhoeae RNA detected in this patient's sample ? (REFERENCE RANGE/NORMAL VALUE: NOT DETECTED) ? NOTE: This test uses procedure rn-mediated amplification method to detect rRNA from N.Gonorrhoeae. [...] without risk of sexual abuse. Consult the [facility] if needed. Contact phone number . Therapeutic failure or success cannot be determined with the Aptima Combo2 assay since nucleic acid may persist following appropriate antimicrobial therapy. The Centers for Disease Control and Prevention (CDC) recommends confirmatory retesting using culture or a different nucleic acid amplification test when positive results occur, if indicated. Testing performed or reported by [facility], a Service of [facility], [address] [place] [address] Urine 10/26/2018 5:59 PM EDT 10/26/2018 8:16 PM EDT Andressa Valverde NP LAB MICROBIOLOGY - GENERAL OR DERABLES Final Result [facility] from Last 3 Months or Most Recently Relevant to Health Maintenance Insurance [facility] PPO
--- OUTSIDE RECORDS SUMMARY | 2024-04-25 08:57 | XMS_ITS | Encounter Summary ---
Author Organization [facility] Address [address] [place] [address] Phone Care Team Providers Care Forming Machine Adjuster Name Role Phone Lashell Cage MD Primary Care Provider [phone] Encounter Details Date Type Department Care Team (Late st Contact Info) Description 07/30/2016 Documentation [facility] [place] Family Medicine [address] [place] [address] Family Medicine, Physician [address] [place] [address] Social History Tobacco Use Types Packs/Day Years [...] on filedocumented in this encounter Care Teams Forming Machine Adjuster Relationship Specialty Start Date End Date Lashell Cage MD PCP - General Pediatrics 10/06/19 06/18/22 documented as of this encounter
--- OUTSIDE RECORDS SUMMARY | 2024-04-25 08:57 | XMS_ITS | Encounter Summary ---
Author Organization [facility] Address [address] [place] [address] Phone Care Team Providers Care Learning Manager Name Role Phone Lashell Cage MD Primary Care Provider Encounter Details Date Type Department Care Team (Late st Contact Info) Description 05/13/2016 Documentation [facility] [place] Family Medicine [address] [place] [address] Family Medicine, Physician [address] [place] [address] Social History Tobacco Use Types Packs/Day Years [...] on filedocumented in this encounter Care Teams Learning Manager Relationship Specialty Start Date End Date Lashell Cage MD PCP - General Pediatrics 10/06/19 06/18/22 documented as of this encounter
--- OUTSIDE RECORDS SUMMARY | 2024-04-25 08:57 | XMS_ITS | Clinical Summary ---
Author Organization [facility] [address] [place] [address] [place] [phone] Phone Care Team Providers Care Mobile Architect Name Role Phone Kary Elias Primary Care Provider Allergies Active Allergy Reactions Criticality Noted Date Comments Coconut Oil 09/13/2020 Lidocaine 09/13/2020 Other Reaction(s): OTHER Tremors and body aches from lidocaine patch Other 09/13/2020 Gloves NITRILE Medications fluconazole (DIFLUCAN) 150 mg tablet Take one tablet every 3 days for 3 doses 4 Active clotrimazole-betam ethasone (LOTRISONE) 1-0.05 % cream Twice daily for two weeks. 4 08/13/19 25 Active doxycycline (MONODOX) 100 mg capsule 2 Active ACETAMINOPHEN ORAL Take by mouth. Active albuterol HFA (PROAIR HFA ; PROVENTIL HFA ; VENTOLIN HFA) 90 mcg/actuation inhaler Inhale 2 Puffs into the lungs every 6 hours as needed for Cough or Wheezing. INHALE 2 PUFFS 4 TIMES A DAY NEEDED FOR WHEEZING 2 Active clotrimazole (LOTRIMIN) 1 % cream Apply bid to affected area 2 Active ferrous sulfate 325 mg (65 mg elemental iron) tablet Take by mouth. Active medroxyPROGESTERon e 150 mg/mL injectionIndicatio ns:Encounter for contraceptive management, unspecified type Inject 1 mL (150 mg total) into the shoulder, thigh, or buttocks every 3 (three) months. 1 mL 2 4 Active Active Problems Problem Noted Date Diagnosed Date Cutaneous candidiasis 08/18/2023 Vaginal discharge 08/18/2023 Asthma 11/20/2020 Lumbar spine scoliosis 11/20/2020 Immunizations Name Administration Dates Next Due HPV [...] drink = 0.6 oz pur e alcohol) Comments Unknown Sex and Gender Information Value Date Recorded Sex Assigned at Not on file Legal Sex Female 12:05 AM EST Gender Identity Not on file Sexual Orientation Not on file Obstetrics History Last Filed [...] Health Maintenance Due Date Last Done Comments Meningococcal B Vacine (2 of 2 - Trumenba SCDM 2-dose series) 04/28/2019 10/26/2018 DTaP,Tdap,and Td [...] Pap smear abstracted; negative Historical Provider MD HEALTH MAINTENANCE Final Result * Gonorrhea/Chlamydia Screening (07/16/2021) Gonorrhea/Chla mydia Screening abstracted Historical Provider MD HEALTH MAINTENANCE Final Result from Last 3 Months or Most Recently Relevant to Health Maintenance Insurance [place] [employer] [facility] Care Teams Mobile Architect Relationship Specialty Start Date End Date Kary Elias PA [address] [place] [address] PCP - General 07/21/23
--- OUTSIDE RECORDS SUMMARY | 2024-04-25 08:57 | XMS_ITS | Encounter Summary ---
Author Organization [facility] Address [address] [place] [address] Phone Care Team Providers Care Winch Stripper Name Role Phone Lashell Cage MD Primary Care Provider [phone] Encounter Details Date Type Department Care Team (Late st Contact Info) Description 06/17/2015 Documentation [facility] [place] Family Medicine [address] [place] [address] Family Medicine, Physician [address] [place] [address] Social History Tobacco Use Types Packs/Day Years [...] on filedocumented in this encounter Care Teams Winch Stripper Relationship Specialty Start Date End Date Lashell Cage MD PCP - General Pediatrics 10/06/19 06/18/22 documented as of this encounter
--- OUTSIDE RECORDS SUMMARY | 2024-04-25 08:57 | XMS_ITS | Encounter Summary ---
Author Organization [facility] Address [address] [place] [address] Phone Care Team Providers Care Topographical Engineer Name Role Phone Lashell Cage MD Primary Care Provider [phone] Encounter Details Date Type Department Care Team (Late st Contact Info) Description 07/30/2016 Documentation [facility] [place] Family Medicine [address] [place] [address] Family Medicine, Physician [address] [place] [address] Social History Tobacco Use Types Packs/Day Years [...] on filedocumented in this encounter Care Teams Topographical Engineer Relationship Specialty Start Date End Date Lashell Cage MD PCP - General Pediatrics 10/06/19 06/18/22 documented as of this encounter
== END 2024-04-25 09:16 | disposition home or self-care (01) ==
PROVIDERS: PCP Pediatrics; Visit Provider Physician Assistant
DX: R04.0 Epistaxis (principal)

== ENCOUNTER → 2024-04-25 08:34 | Outpatient (BNVA) | payer OTHER, SELFPAY | PROVIDERS: PCP Pediatrics ==

== ENCOUNTER 2024-08-08 08:28 | Outpatient (AMB) | payer OTHER, SELFPAY ==
--- NOTE | 2024-08-08 08:31 | AM.OFFWIN_ITS ---
Intake Vital Signs 08/08/24 08:34 Height 5 ft 4 in Weight 168 lb BMI 28.8 BP 110/70 Blood Pressure Location Rt brachial Position Sitting Pulse 66 Pulse Source Pulse Oximeter Temp 98.7 F Temp Source Oral Pulse Oximetry (%) 98 Oxygen Delivery Method Room Air Intake Visit Reasons: EP sore throat, threw up mucus, fatigue Intake Note: Patient here for diarrhea, vomiting, mucus, dry throat, fatigue and body aches that has been present for about 1 week. Patient Tobacco Use Status: Never used Tobacco Allergies lidocaine Allergy (Intermediate, Verified 08/08/24 08:40) Tremors Do you need a note to return to daycare/school/sports/work: No HPI HPI Comments History of Present Illness Details History of Present Illness The patient is a 23-year-old female presenting with congestion which started this am. Approximately two weeks ago, she began to experience diarrhea and nausea. Her diarrheal episodes have not been consistent but are ongoing, accompanied by constipation at times. She also thinks that she has hemorrhoids. She has not had much of an appetite. She has body aches, and a slight cough. During the past two weeks, she also reports increased lethargy and worsening allergy symptoms. She has been having ear fullness, itchy throat, and congestion. She states that she has allergies. The patient is not on any regular allergy medications, although the intensity of her symptoms typically would warrant such. She experiences swelling on the right side of her throat but no palpable lymph nodes. She has been eating and drinking. She smokes marijuana. She has a boyfriend that she lives with who has similar symptoms and a co-worker who has covid. She has a home test and will take it today. She denies fever, chills, CP, SOB, abd pain, back pain, recent travel. She also has excessive sweating. She is looking for a prescription deodorant. She has not had labs for this or spoke to her PCP. Physical Exam General: Cooperative, healthy appearing, comfortable, no acute distress and well developed Head: Normal to inspection Ears: Cerumen noted in the right ear and TM not visualized. Cerumen noted in the left with half TM noted and normal. No tragus tenderness noted. Nose: Normal external nose present. Moist mucousa, turbinates normal. Face and sinus: Normal facial exam. No sinus tenderness noted. Neck: Normal visual inspection and Yes full ROM. No lymphadenopathy noted. Respiratory: Normal respiratory effort and able to speak in complete sentences. Clear to auscultation bilaterally Cardiovascular: Regular rate and rhythm. Normal S1 and S2 GI: Normal to inspection. Soft to palpation and nontender, patient reports diarrhea and constipation Skin: No rashes or lesions noted Patient was informed and verbally consented to the use of an ambient scribe for clinic note documentation during this visit. COUNT INCLUDES THE [facility] Social History Patient Tobacco Use Status: Never used Tobacco Review of Systems Const All systems reviewed & are unremarkable except as noted in HPI and below Physical Exam Vital Signs: Last Vital Signs Temp 98.7 F 08/08/24 08:34 Pulse 66 08/08/24 08:34 BP 110/70 08/08/24 08:34 Pulse Ox 98 08/08/24 08:34 Oxygen Delivery Method Room Air 08/08/24 08:34 BMI result Body Mass Index 28.8 Assessment & Plan Assessment & Plan (1) URI (upper respiratory infection): Code(s): J06.9 - Acute upper respiratory infection, unspecified Qualifiers: URI type: unspecified URI Qualified Code(s): J06.9 - Acute upper respiratory infection, unspecified (2) 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 A cough liquid prescription is provided for the suspected bacterial infection, alongside allergy management with oral medication and nasal spray. The cerumen impaction is addressed with plans for removal. Ensuring these measures and monitoring the patient's response is important for symptom control and overall improvement. Medications: New fluticasone propionate 50 mcg/actuation administer into each nostril 1 spray intranasal Q12H 16 grams 0RF cetirizine 5 mg (5 mL) PO DAILY 120 mL 0RF guaifenesin 200 mg (10 mL) PO Q4H PRN 473 mL 0RF cough Coding Level of Care Code Est Pt Level 4 (93591) Diagnoses Upper respiratory tract infection, unspecified type J06.9 URI type: unspecified URI Axillary hyperhidrosis L74.510
[2024-08-08 08:34] VITALS: BP 110/70; PULSE 66; TEMP 37.1; O2SAT 98; BMI 28.8
--- OUTSIDE RECORDS SUMMARY | 2024-08-08 08:46 | XMS_ITS | Encounter Summary ---
Author Organization [facility] Address [address] [place] [address] Phone Care Team Providers Care Food Beverage Manager Name Role Phone Lashell Cage MD Primary Care Provider [phone] Encounter Details Date Type Department Care Team (Late st Contact Info) Description 06/17/2015 Documentation [facility] [place] Medicine [address] [place] [address] Family Medicine, Physician [address] [place] [address] Social History Tobacco Use Types Packs/Day Years [...] on filedocumented in this encounter Care Teams Food Beverage Manager Relationship Specialty Start Date End Date Lashell Cage MD PCP - General Pediatrics 10/06/19 06/18/22 documented as of this encounter
== END 2024-08-08 09:43 | disposition home or self-care (01) ==
PROVIDERS: PCP Pediatrics; Visit Provider Physician Assistant Medical
DX: J06.9 Acute upper respiratory infection, unspecified (principal); L74.510 Primary focal hyperhidrosis, axilla

== ENCOUNTER → 2024-08-08 08:28 | Outpatient (BNVA) | payer OTHER, SELFPAY | PROVIDERS: PCP Pediatrics; Visit Provider Physician Assistant Medical | DX: Z13.89 Encounter for screening for other disorder (principal) ==

== ENCOUNTER 2024-09-04 14:39 | Outpatient (REF) | payer OTHER, SELFPAY ==
[2024-09-04 18:49] LABS: Influenza A PCR NEGATIVE (Negative); Influenza B PCR NEGATIVE (Negative); Resp Syncy Virus RNA Qual PCR NEGATIVE (Negative); SARS COV2 PCR INHOUSE NEGATIVE (Negative)
== END 2024-09-04 14:40 | disposition home or self-care (01) ==
LOC: HO.LNP 14:39
PROVIDERS: PCP Pediatrics; Visit Provider Physician Assistant Medical
DX: J06.9 Acute upper respiratory infection, unspecified (principal); R09.89 Other specified symptoms and signs involving the circulatory and respiratory systems
CPT/HCPCS: 87637; 87880

== ENCOUNTER 2024-09-04 14:39 | Outpatient (AMB) | payer OTHER, SELFPAY ==
[2024-09-04 14:41] VITALS: BP 122/54; PULSE 118; TEMP 37.4; O2SAT 98; BMI 28.8
--- NOTE | 2024-09-04 14:41 | AM.OFFWIN_ITS ---
Intake Vital Signs 09/04/24 14:41 Height 5 ft 4 in Weight 168 lb BMI 28.8 BP 122/54 L Blood Pressure Location Rt brachial Position Sitting Pulse 118 H Pulse Source Pulse Oximeter Temp 99.3 F Temp Source Oral Pulse Oximetry (%) 98 Oxygen Delivery Method Room Air Intake Visit Reasons: EP sore throat, cough, sinus congestion,diarrhea Intake Note: pt presents with sore throat, dry coughing, headache, sinus congestion, diarrhea, body chills x3 days. Patient Tobacco Use Status: Never used Tobacco Allergies lidocaine Allergy (Intermediate, Verified 09/04/24 14:47) Tremors Do you need a note to return to daycare/school/sports/work: Yes HPI HPI Comments History of Present Illness Details History - The patient is a 23-year-old female pr esenting with symptoms of a viral upper respiratory infection. - Symptoms began with a sore throat and dizziness, leading to near syncope. - She experienced arm numbness, migraine , congestion, and persistent cough. - Reports diarrhea but no confirmed feve r. She did have food poisoning over the weekend. - Nasal discharge has been yellow and th ick. - Recent exposure to flu and strep throa t within the family. - History of asthma, currently using an albuterol inhaler. - She has been taking cough medicine at home. - She reports that she works at [employer] in [employer] and her boyfriend is also sick. - She denies fever, chills, chest pain, SOB, abd pain, nausea, or vomiting. Physical Exam General: Cooperative, healthy appearing, comfortable and no acute distress Orientation/consciousness: Patient oriented x3 Head: Normal to inspection Ears: Hearing grossly normal bilaterally, external ears normal and TM's normal bilaterally Nose: Normal external nose present, normal nares present, and no nasal discharge present. Face and sinus: Sinuses nontender to palpation. No TTP of the sinuses. Mouth: Normal oral and palatal mucosa present and moist mucous membranes noted. Throat: Tonsils normal. Uvula is midline. Posterior oropharynx with erythema and no exudates. Eyes: Appearance normal, both eyes and all related structures Neck: Normal visual inspection, full ROM. No lymphadenopathy noted. Respiratory: Clear to auscultation bilaterally. Normal respiratory effort, able to speak in complete sentences. No respiratory distress, not tachypneic, no tripod positioning and no use of accessory muscles. wheezing noted. Cardiovascular: Regular rate and rhythm. Normal S1 and S2 Skin: No rashes or lesions noted. Patient was informed and verbally consented to the use of an ambient scribe for clinic note documentation during this visit [facility] Social History Patient Tobacco Use Status: Never used Tobacco Review of Systems Const All systems reviewed & are unremarkable except as noted in HPI and below Physical Exam Vital Signs: Last Vital Signs Temp 99.3 F 09/04/24 14:41 Pulse 118 H 09/04/24 14:41 BP 122/54 L 09/04/24 14:41 Pulse Ox 98 09/04/24 14:41 Oxygen Delivery Method Room Air 09/04/24 14:41 BMI result Body Mass Index 28.8 Assessment & Plan Assessment & Plan (1) URI (upper respiratory infection): Code(s): J06.9 - Acute upper respiratory infection, unspecified Qualifiers: URI type: unspecified URI Qualified Code(s): J06.9 - Acute upper respiratory infection, unspecified Plan Most likely URI vs viral illness vs covid vs flu vs strep Rapid strep in the office today- negative Plan - Conduct a rapid strep test to rule out streptococcal pharyngitis. - Will order a covid/RSV/flu swab - Prescribe Tessalon Perles for cough management. - Advise continued use of albuterol inhaler as needed for asthma symptoms. - VSS, pt well appearing - diet as tolerated - follow up with PCP Orders: Orders SARS-CoV2/FLU/RSV Today R09.89 - Other specified symptoms and signs involving the circulatory and respiratory systems Medications: New benzonatate 100 mg PO bid-tid PRN 21 caps 0RF Cough 7 days Coding Level of Care Code Est Pt Level 4 (73373) Diagnoses Upper respiratory tract infection, unspecified type J06.9 URI type: unspecified URI
--- OUTSIDE RECORDS SUMMARY | 2024-09-04 15:08 | XMS_ITS | Clinical Summary ---
Author Organization [facility] [address] [place] [address] [place] [phone] Phone Care Team Providers Care Orthodontic Technician Name Role Phone Kary Elias Primary Care Provider Allergies Active Allergy Reactions Criticality Noted Date Comments Coconut Oil 09/13/2020 Lidocaine 09/13/2020 Other Reaction(s): OTHER Tremors and body aches from lidocaine patch Other 09/13/2020 Gloves NITRILE Medications ACETAMINOPHEN ORAL Take by mouth. Activ e albuterol HFA (PROAIR HFA ; PROVENTIL HFA ; VENTOLIN HFA) 90 mcg/actuation inhaler Inhale 2 Puffs into the lungs every 6 hours as needed for Cough or Wheezing. INHALE 2 PUFFS 4 TIMES A DAY NEEDED FOR WHEEZING 2 Active levonorgestrel -ethinyl estradiol (AVIANE,ALESSE ) 0.1-20 mg-mcg per tablet Take 1 tablet by mouth 1 (one) time each day. Aviane brand no substitutions 28 tablet 11 5 05/12/19 26 Active Active Problems Problem Noted Date Diagnosed Date Cutaneous candidiasis 08/18/2023 Asthma 11/20/2020 Lumbar spine scoliosis 11/20/2020 [...] Date Smoking Tobacco: Never Smokeless Tobacco: Never Tobacco Cessation:Counseling Given: Not Answered Alcohol Use Standard Drinks/Week Comments Not Currently 0 (1 standard drink = 0.6 oz pur e alcohol) Comments No Sex and Gender Information Value Date Recorded Sex Assigned at Not on file Legal Sex Female 12:05 AM EST Gender Identity Not on file Sexual Orientation Not on file Obstetrics History Para Term AB IAB SAB Ectopic Multiple Livin g Live Births 0 0 0 0 0 0 0 0 0 0 0 Last Filed Vital Signs Vital Sign Reading Time Taken Comments Blood Pressure 125/96 05/11/2024 9:21 AM EST Pulse 128 05/11/2024 9:21 AM EST Temperature - - Respiratory Rate 8 05/11/2024 9:21 AM EST Oxygen Saturation - - Inhaled Oxygen Concentration - - Weight 79.8 kg (176 lb) 05/11/2024 9:21 AM EST Height 162.6 cm (5' 4 ) 05/11/2024 9:21 AM EST Body Mass Index 30.21 05/11/2024 9:21 AM EST Plan of Treatment Health Maintenance Due Date Last Done Comments Meningococcal B Vaccine (2 of 2 - Trumenba SCDM 2-dose series) 04/28/2019 10/26/2018 DTaP,Tdap,and Td Vaccines (7 - Td or Tdap) 10/11/2021 10/12/2011, 12/26/2003, 06/07/2001, Additional history exists Depression Screening 02/08/2022 HIV Screening 02/08/2022 Hepatitis C Screening 02/08/2022 Social Influencers of Health Screening 02/08/2022 Gonorrhea/Chlamydia Screening 07/16/2022 07/16/2021 COVID-19 Vaccine ( season) 2023 Influenza Vaccine (Season Ended) 2024 02/25/2022, 12/09/2020, 11/06/2020, Additional history exists Cervical Cancer [...] Pap Smear (12/31/2021) Pap smear abstracted; negative us Historical Provider HEALTH MAINTENANCE Final Result * Gonorrhea/Chlamydia Screening (07/16/2021) HM Gonorrhea/Chla mydia Screening abstracted Historical Provider HEALTH MAINTENANCE Final Result from Last 3 Months or Most Recently Relevant to Health Maintenance Insurance [employer] [facility] Care Teams Orthodontic Technician Relationship Specialty Start Date End Date Kary Elias PA [address] [place] [address] PCP - General 07/21/23
--- OUTSIDE RECORDS SUMMARY | 2024-09-04 15:08 | XMS_ITS | Encounter Summary ---
Author Organization [facility] Address [address] [place] [phone] Phone Care Team Providers Care Multifocal Lens Inspector Name Role Phone Lashell Cage MD Primary Care Provider [phone] Encounter Details Date Type Department Care Team (Late st Contact Info) Description 06/17/2015 Documentation [facility] [place] Family Medicine [address] [place] [address] Family Medicine, Physician [address] [place] [address] Social History Tobacco Use Types Packs/Day Years [...] on filedocumented in this encounter Care Teams Multifocal Lens Inspector Relationship Specialty Start Date End Date Lashell Cage MD PCP - General Pediatrics 10/06/19 06/18/22 documented as of this encounter
== END 2024-09-04 15:11 | disposition home or self-care (01) ==
PROVIDERS: PCP Pediatrics; Visit Provider Physician Assistant Medical
DX: Z13.9 Encounter for screening, unspecified (principal); J06.9 Acute upper respiratory infection, unspecified

== ENCOUNTER 2024-09-06 14:31 | Outpatient (AMB) | payer OTHER, SELFPAY ==
[2024-09-06 14:34] VITALS: BP 114/58; PULSE 100; TEMP 37.2; O2SAT 98; BMI 28.8
--- NOTE | 2024-09-06 14:34 | AM.OFFWIN_ITS ---
Intake Vital Signs 09/06/24 14:34 Height 5 ft 4 in Weight 168 lb BMI 28.8 BP 114/58 L Blood Pressure Location Lt brachial Position Sitting Pulse 100 Pulse Source Pulse Oximeter Temp 99.0 F Temp Source Oral Pulse Oximetry (%) 98 Oxygen Delivery Method Room Air Intake Visit Reasons: EP Chest tightness, bad fatigue, sob Intake Note: presents with chest tightness,migraine, right ear pain last night,mild cough remains, Shortness of breath, wheezing, feverish, fatigue, body chills Patient Tobacco Use Status: Never used Tobacco Allergies lidocaine Allergy (Intermediate, Verified 09/06/24 14:40) Tremors HPI HPI Comments History of Present Illness Details History - The patient is a 23-year-old female pr esenting with continuing symptoms of a respiratory infection, including cough, chest tightness, ear pain, sinus pain, headache this AM and shortness of breath with exertion. - The cough began 5 days ago and was ini tially severe, accompanied by chest tightness this morning. - The patient reports using Tessalon Per les and albuterol inhaler, with some relief. Cough overall is improved. - She experiences shortness of breath wi th exertion and has a history of recurrent RSV infection during childhood. - Denies fevers - The patient has been experiencing epis odes of dizziness and elevated heart rate, with her apple watch recording HR's today from 47-167 bpm. - She is currently on control pill s - Preventative measures include a recent pneumonia vaccination. - m her boyfriend is also sick but he ap pears to be improving faster than she is. -she did have a flu COVID and RSV test d one 2 days ago which were negative, rapid strep was also negative 2 days ago - She has been going to work at the [facility] [place] [place] [facility]. Physical Exam General: Cooperative, healthy appearing, comfortable and no acute distress Orientation/consciousness: Patient oriented x3 Limitations: No limitations Head: Normal to inspection Ears: Hearing grossly normal bilaterally, external ears normal and TM's normal bilaterally Nose: Normal external nose present, Normal nares present, but patient reports nasal congestion and nasally voice Face and sinus: Normal facial exam, Yes sinuses nontender Mouth: Normal oral and palatal mucosa present and moist mucous membranes Throat: Yes tonsils normal, Yes uvula midline. Posterior oropharynx erythema, no exudates Eyes: Appearance normal, both eyes and all related structures Neck: Normal visual inspection, full ROM Respiratory: mild rhonchi throughout. Normal respiratory effort, able to speak in complete sentences, Actively coughing, no respiratory distress, not tachypneic, no tripod positioning and no use of accessory muscles Cardiovascular: Regular rate and rhythm. Normal S1 and S2 Skin: No rashes or lesions noted Neuro: Patient oriented x3 Extremities: Normal to inspection and Yes no clubbing, cyanosis or edema PFSH Social History Patient Tobacco Use Status: Never used Tobacco Review of Systems Const All systems reviewed & are unremarkable except as noted in HPI and below Physical Exam Vital Signs: Last Vital Signs Temp 99.0 F 09/06/24 14:34 Pulse 103 H 09/06/24 14:34 BP 114/58 L 09/06/24 14:34 Pulse Ox 98 09/06/24 14:34 Oxygen Delivery Method Room Air 09/06/24 14:34 BMI result Body Mass Index 28.8 Assessment & Plan Assessment & Plan (1) Lower respiratory infection (e.g., bronchitis, pneumonia, pneumonitis, pulmonitis): Code(s): J22 - Unspecified acute lower respiratory infection Plan: - VSS, pt well appearing and PE remarkable for mild rhonchi throughout - Conduct a chest x-ray to rule out other conditions such as pneumonia. - Continue use of Tessalon Perles, mucinex and albuterol inhaler for symptomatic relief. - Monitor heart rate and symptoms of shortness of breaths, considering the potential risk of pulmonary embolism due to control use. Though her shortness of breath is more likely due to a respiratory illness because she has all the other associated symptoms. If her symptoms get worse, she should go to the emergency department to have a PE ruled out. - Consider further evaluation if symptoms persist or worsen, including potential referral to a specialist. Patient was informed and verbally consented to the use of an ambient scribe for clinic note documentation during this visit Orders: Orders XR chest 2V Today R05.9 - Cough, unspecified Resp Pathogen Panel - [facility] [place] [place] Today J06.9 - Acute upper respiratory infection, unspecified Coding Level of Care Code New Pt Level 4 (17249) Diagnoses Lower respiratory infection (e.g., bronchitis, pneumonia, pneumonitis, pulmonitis) J22
--- OUTSIDE RECORDS SUMMARY | 2024-09-06 15:01 | XMS_ITS | Encounter Summary ---
Author Organization [facility] Address [address] [place] [address] Phone Care Team Providers Care Char Conveyor Tender Cellar Name Role Phone Lashell Cage MD Primary Care Provider [phone] Encounter Details Date Type Department Care Team (Late st Contact Info) Description 06/17/2015 Documentation [facility] Family Medicine [address] [place] [address] Family Medicine, Physician [address] [place] [address] Social History Tobacco Use Types Packs/Day Years [...] on filedocumented in this encounter Care Teams Char Conveyor Tender Cellar Relationship Specialty Start Date End Date Lashell Cage MD PCP - General Pediatrics 10/06/19 06/18/22 documented as of this encounter
--- OUTSIDE RECORDS SUMMARY | 2024-09-06 15:02 | XMS_ITS | Clinical Summary ---
Author Organization [facility] [address] [place] [address] [place] [phone] Phone Care Team Providers Care Aboriginal Education Worker Coordinator Name Role Phone Kary Elias Primary Care [...] Most Recently Relevant to Health Maintenance Insurance [employer] [facility] Care Teams Aboriginal Education Worker Coordinator Relationship Specialty Start Date End Date Kary Elias PA [address] [facility] [address] [place] [address] PCP - General 07/21/23
== END 2024-09-06 15:09 | disposition home or self-care (01) ==
PROVIDERS: PCP Pediatrics; Visit Provider Physician Assistant
DX: J22 Unspecified acute lower respiratory infection (principal)

== ENCOUNTER 2024-09-06 14:31 | Outpatient (REF) | payer OTHER, SELFPAY ==
--- NOTE | ~2024-09-06 | XR_ITS ---
EXAMINATION: XR CHEST 2 VIEWS HISTORY: R05.9 - Cough, unspecified COMPARISON: There are no prior studies available for comparison. FINDINGS: PA and lateral views of the chest are submitted. The lungs are expanded and clear. There is no pleural effusion, pneumothorax, or pulmonary vascular congestion. The heart is normal in size. The bones are intact. XR/XR chest 2V IMPRESSION: Normal examination of the chest. Electronically signed by: Avinash Estevez MD 09/06/2024 03:10 PM EDT
[2024-09-07 11:10] LABS: Chlamydia pneumoniae PCR Not Detected (Not Detect.); Coronavirus 229E PCR Not Detected (Not Detect.); Coronavirus HKU1 PCR Not Detected (Not Detect.); Coronavirus NL63 PCR Not Detected (Not Detect.); Coronavirus OC43 PCR Not Detected (Not Detect.); RSV PCR Not Detected (Not Detect.); Rhino/Enterovirus PCR Detected (Not Detect.)
[2024-09-07 12:10] LABS: Influenza A H1 PCR Not Detected (Not Detect.); Influenza A H1-2009 PCR Not Detected (Not Detect.); Influenza A H3 PCR Not Detected (Not Detect.); SARS-CoV-2 PCR Not Detected (Not Detect.)
== END 2024-09-06 14:32 | disposition home or self-care (01) ==
LOC: HO.HMGCX 14:31
PROVIDERS: PCP Pediatrics; Visit Provider Physician Assistant
DX: J22 Unspecified acute lower respiratory infection (principal); R05.9 Cough, unspecified
CPT/HCPCS: 71046; 87633

== ENCOUNTER → 2024-09-06 14:59 | Outpatient (BNV) | payer OTHER, SELFPAY | PROVIDERS: PCP Pediatrics; Visit Provider Radiology Diagnostic Radiology | DX: R05.9 Cough, unspecified (principal) | CPT/HCPCS: 71046 ==

== ENCOUNTER 2024-11-03 09:47 | Outpatient (AMB) | payer OTHER, SELFPAY ==
--- OUTSIDE RECORDS SUMMARY | 2024-11-03 10:31 | XMS_ITS | Encounter Summary ---
Author Organization [facility] Address [address] [place] [address] Phone Care Team Providers Care Crystal Grower Name Role Phone Lashell Cage MD Primary Care Provider [phone] Encounter Details Date Type Department Care Team (Late st Contact Info) Description 10/22/2016 Conversion Encounter [facility] - [address] [address] Social History Tobacco Use Types Packs/Day Years [...] on filedocumented in this encounter Care Teams Crystal Grower Relationship Specialty Start Date End Date Lashell Cage MD PCP - General Pediatrics 10/06/19 06/18/22 documented as of this encounter
--- OUTSIDE RECORDS SUMMARY | 2024-11-03 10:31 | XMS_ITS | Encounter Summary ---
Author Organization [facility] Address [address] [place] [address] Phone Care Team Providers Care Roof Designer Name Role Phone Lashell Cage MD Primary Care Provider [phone] Encounter Details Date Type Department Care Team (Late st Contact Info) Description 04/20/2016 Documentation [facility] [place] Family Medicine [address] [place] [address] Family Medicine, Physician [address] [place] [address] Social History Tobacco Use Types Packs/Day Years [...] on filedocumented in this encounter Care Teams Roof Designer Relationship Specialty Start Date End Date Lashell Cage MD PCP - General Pediatrics 10/06/19 06/18/22 documented as of this encounter
--- OUTSIDE RECORDS SUMMARY | 2024-11-03 10:31 | XMS_ITS | Encounter Summary ---
Author Organization [facility] Address [address] [place] [address] Phone Care Team Providers Care Assembly Machine Offbearer Name Role Phone Lashell Cage MD Primary Care Provider [phone] Encounter Details Date Type Department Care Team (Late st Contact Info) Description 06/17/2015 Documentation [facility] [place] [address] [place] [address] Family Medicine, Physician [address] [place] [address] Social History Tobacco Use Types Packs/Day Years [...] on filedocumented in this encounter Care Teams Assembly Machine Offbearer Relationship Specialty Start Date End Date Lashell Cage MD PCP - General Pediatrics 10/06/19 06/18/22 documented as of this encounter
--- OUTSIDE RECORDS SUMMARY | 2024-11-03 10:31 | XMS_ITS | Clinical Summary ---
Author Organization [facility] Address [address] [place] [address] Phone Care Team Providers Care Emergency Medical Service Coordinator Name Role Phone Unavailable Primary Care Provider [...] Ashli Galarza Relation Name Status Comments Father Avniash Gatica Alive Maternal Grandmother Alive Materna l [...] 108 10/06/2019 3:12 PM EDT Temperature 36.1 C (96.9 F) 10/24/2019 2:27 PM EDT Respiratory Rate 20 10/04/2018 3:40 PM EDT [...] 10/11/2021 10/12/2011, 12/26/2003, 06/07/2001, Additional history exists COVID-19 Vaccine ( - 2023-2 5 season) 2023 Influenza Vaccines (#1) 2024 12/10/19, 11/02/2019, 10/20/2018, Additional history exists Hepatitis B Vaccines Completed 09/14/2000, 01/07/2000, 1999 [...] Additional history exists Procedures * Due to [employer] law, this organization might not be sharing sensitive test results. Procedure Name Priority Date/Time Associated Diagnosis Comments CHLAMYDIA AND GONORRHEA, AMPLIFIED Routine 10/26/2018 5:59 PM EDT Screen for sexually transmitted diseases from Last 3 Months or Most Recently Relevant to Health Maintenance Results * Due to [place] [employer] law, this organization might not be sharing sensitive test results. * Chlamydia and Gonorrhoea, Amplified (10/26/2018 5:59 PM EDT) Chlamydia Trachomatis, DNA Probe NEGATIVE (NEG) [facility] Comment: No Chlamydia Trachomatis RNA detected in this patient's sample (REFERENCE RANGE/NORMAL VALUE: NOT DETECTED) Note: This test uses fish and game warden- mediated amplification method to detect rRNA from C. Trachomatis URINE GC AMP PROBE NEGATIVE (NEG) [facility] Comment: No Neisseria Gonorrhoeae RNA detected in this patient's sample (REFERENCE RANGE/NORMAL VALUE: NOT DETECTED) NOTE: This test uses fish and game warden-mediated amplification method to detect rRNA from N.Gonorrhoeae. [...] without risk of sexual abuse. Consult the [facility] if needed. Contact phone number . Therapeutic failure or success cannot be determined with the Aptima Combo2 assay since nucleic acid may persist following appropriate antimicrobial therapy. The Centers for Disease Control and Prevention (CDC) recommends confirmatory retesting using culture or a different nucleic acid amplification test when positive results occur, if indicated. Testing performed or reported by [facility], a Service of [facility], [address] [place] [address] Urine 10/26/2018 5:59 PM EDT 10/26/2018 8:16 PM EDT us Andressa Valverde NP LAB MICROBIOLOGY - GENERAL OR DERABLES Final Result [facility] from Last 3 Months or Most Recently Relevant to Health Maintenance Insurance [address] [address] [employer] PPO
--- OUTSIDE RECORDS SUMMARY | 2024-11-03 10:31 | XMS_ITS | Encounter Summary ---
Author Organization [facility] Address [address] [place] [address] Phone Care Team Providers Care Bookmobile Clerk Name Role Phone Lashell Cage MD Primary Care Provider [phone] Encounter Details Date Type Department Care Team (Late st Contact Info) Description 07/30/2016 Documentation [facility] [address] [place] [address] Family Medicine, Physician [address] [place] [address] Social History Tobacco Use Types Packs/Day Years [...] on filedocumented in this encounter Care Teams Bookmobile Clerk Relationship Specialty Start Date End Date Lashell Cage MD PCP - General Pediatrics 10/06/19 06/18/22 documented as of this encounter
--- OUTSIDE RECORDS SUMMARY | 2024-11-03 10:31 | XMS_ITS | Encounter Summary ---
Author Organization [facility] Address [address] [place] [address] Phone Care Team Providers Care Carton Maker Name Role Phone Lashell Cage MD Primary Care Provider [phone] Encounter Details Date Type Department Care Team (Late st Contact Info) Description 07/30/2016 Documentation [facility] [place] Family Medicine [address] [place] [address] Family Medicine, Physician [address] [place] [address] Social History Tobacco Use Types Packs/Day Years [...] on filedocumented in this encounter Care Teams Carton Maker Relationship Specialty Start Date End Date Lashell Cage MD PCP - General Pediatrics 10/06/19 06/18/22 documented as of this encounter
--- OUTSIDE RECORDS SUMMARY | 2024-11-03 10:31 | XMS_ITS | Encounter Summary ---
Author Organization [facility] Address [address] [place] [address] Phone Care Team Providers Care Clerical Secretary Name Role Phone Lashell Cage MD Primary Care Provider [phone] Encounter Details Date Type Department Care Team (Late st Contact Info) Description 05/13/2016 Documentation [facility] [place] Family Medicine [address] [place] [address] Family Medicine, Physician [address] [place] [address] Social History Tobacco Use Types Packs/Day Years [...] on filedocumented in this encounter Care Teams Clerical Secretary Relationship Specialty Start Date End Date Lashell Cage MD PCP - General Pediatrics 10/06/19 06/18/22 documented as of this encounter
--- OUTSIDE RECORDS SUMMARY | 2024-11-03 10:31 | XMS_ITS | Encounter Summary ---
Author Organization [facility] Address [address] [place] [address] Phone Care Team Providers Care Folder Inspector Name Role Phone Lashell Cage MD Primary Care Provider [phone] Encounter Details Date Type Department Care Team (Late st Contact Info) Description 04/08/2016 Documentation [facility] [place] [address] [place] [address] Family Medicine, Physician [address] [place] [address] Social History Tobacco Use Types Packs/Day Years [...] on filedocumented in this encounter Care Teams Folder Inspector Relationship Specialty Start Date End Date Lashell Cage MD PCP - General Pediatrics 10/06/19 06/18/22 documented as of this encounter
--- OUTSIDE RECORDS SUMMARY | 2024-11-03 10:31 | XMS_ITS | Clinical Summary ---
Author Organization [facility] [address] [place] [address] [place] [phone] Phone Care Team Providers Care Human Resources Communications Manager Name Role Phone Kary Elias Primary Care [...] 10/11/2021 10/12/2011, 12/26/2003, 06/07/2001, Additional history exists HIV Screening 02/08/2022 Hepatitis C Screening 02/08/2022 Social Influencers of Health Screening 02/08/2022 Gonorrhea/Chlamydia Screening 07/16/2022 07/16/2021 COVID-19 Vaccine ( season) 2023 Depression Screening 03/08/2024 Influenza Vaccine (#1) 2024 , 12/09/2020, 11/06/2020, Additional history exists Cervical [...] 5 Years) and At-Risk Patients (6 to 49 Years) Completed 01/05/2023, 03/09/2001, 06/15/2000, Additional history exists RSV Immunization Patients Under 20 months Aged Out No longer eligible based on patient's age to complete this topic Procedures Procedure Name Priority Date/Time Associated Diagnosis Comments PAP SMEAR Routine 12/31/2021 GONORRHEA/CHLAMYDIA SCRREENING Routine 07/16/2021 from Last 3 Months or Most Recently Relevant to Health Maintenance Results * Hm Pap Smear (12/31/2021) HM Pap smear abstracted; negative us Historical Provider HEALTH MAINTENANCE Final Result * Gonorrhea/Chlamydia Screening (07/16/2021) HM Gonorrhea/Chla mydia Screening abstracted Historical Provider HEALTH MAINTENANCE Final Result from Last 3 Months or Most Recently Relevant to Health Maintenance Insurance [employer] [place] [address] Care Teams Human Resources Communications Manager Relationship Specialty Start Date End Date Kary Elias PA [address] [place] [address] PCP - General 07/21/23
[2024-11-03 10:33] VITALS: BP 102/60; PULSE 75; O2SAT 97
--- NOTE | 2024-11-03 10:33 | MHC.OFFWIV ---
Intake Vital Signs 11/03/24 10:33 Height 5 ft 4 in BP 102/60 Blood Pressure Location Lt brachial Position Sitting Pulse 75 Pulse Source Pulse Oximeter Pulse Oximetry (%) 97 Oxygen Delivery Method Room Air Intake Visit Reasons: ep migraine light sensitive and most pain rt side Patient Tobacco Use Status: Never used Tobacco Allergies lidocaine Allergy (Intermediate, Verified 11/03/24 10:33) Tremors Do you need a note to return to daycare/school/sports/work: Yes HPI HPI Comments History of Present Illness Details History of Present Illness - The patient is a 23-year-old female presenting with a migraine which started this morning. - She woke up with a severe throbbing pain on the right side of her head, which she believes is developing into a migraine. - She has been experiencing nausea associated with the migraine and has run out of her Zofran medication. - She called out of work due to the migraine and is seeking a doctor's note for her absence. Physical Exam General: Cooperative, healthy appearing, comfortable, no acute distress and well developed Orientation: Patient oriented x3 Limitations: No limitations Head: Normal to inspection Ears: Hearing grossly normal bilaterally Nose: Normal External nose present Face and sinus: Normal facial exam Eyes: Appearance normal, both eyes and all related structures, sunglasses on Neck: Normal visual inspection and Yes full ROM Respiratory: Normal respiratory effort and able to speak in complete sentences. Skin: No rashes or lesions noted Neuro: Patient oriented x3 Extremities: Normal to inspection [facility] Social History Patient Tobacco Use Status: Never used Tobacco Review of Systems Const All systems reviewed & are unremarkable except as noted in HPI and below Physical Exam Vital Signs: Last Vital Signs Pulse 75 11/03/24 10:33 BP 102/60 11/03/24 10:33 Pulse Ox 97 11/03/24 10:33 Oxygen Delivery Method Room Air 11/03/24 10:33 Assessment & Plan Assessment & Plan (1) Migraine: Code(s): G43.909 - Migraine, unspecified, not intractable, without status migrainosus Qualifiers: Migraine type: unspecified Status migrainosus presence: without status migrainosus Intractability: not intractable Qualified Code(s): G43.909 - Migraine, unspecified, not intractable, without status migrainosus Plan: Patient was informed and verbally consented to the use of an ambient scribe for clinic note documentation during this visit. Migraine - Refilled Zofran prescription to manage nausea associated with migraine. - Recommend rest in a dark, quiet room with no stimulation. - Advise use of Excedrin and fluids for symptom relief. - Consider Benadryl for additional relief, noting potential drowsiness. Medications: Refilled ondansetron 4 mg PO Q8H PRN 15 tabs 0RF nausea and vomiting Coding Level of Care Code New Pt Level 3 (15472) Diagnoses Migraine without status migrainosus, not intractable, unspecified migraine type G43.909 Migraine type: unspecified Status migrainosus presence: without status migrainosus Intractability: not intractable
== END 2024-11-03 10:51 | disposition home or self-care (01) ==
PROVIDERS: PCP Pediatrics; Visit Provider Physician Assistant
DX: G43.909 Migraine, unspecified, not intractable, without status migrainosus (principal)

== ENCOUNTER 2025-02-15 11:31 | Outpatient (REF) | payer OTHER, SELFPAY ==
[2025-02-15 14:38] LABS: Resp Syncy Virus RNA Qual PCR NEGATIVE (Negative); SARS COV2 PCR INHOUSE NEGATIVE (Negative)
--- OUTSIDE RECORDS SUMMARY | 2025-02-15 21:05 | XMS_ITS | Encounter Summary ---
Author Organization [facility] Address [address] [place] [address] Phone Care Team Providers Care Tin Cutter Name Role Phone Lashell Cage MD Primary Care Provider [phone] Encounter Details Date Type Department Care Team (Late st Contact Info) Description 07/30/2016 Documentation [facility] Family Medicine [address] [place] [address] Family Medicine, Physician [address] [place] [address] Social History Tobacco Use Types Packs/Day Years [...] on filedocumented in this encounter Care Teams Tin Cutter Relationship Specialty Start Date End Date Lashell Cage MD PCP - General Pediatrics 10/06/19 06/18/22 documented as of this encounter
--- OUTSIDE RECORDS SUMMARY | 2025-02-15 21:05 | XMS_ITS | Encounter Summary ---
Author Organization [facility] Address [address] [place] [address] Phone Care Team Providers Care Flake Miller Wheat And Oats Name Role Phone Lashell Cage MD Primary Care Provider Encounter Details Date Type Department Care Team (Late st Contact Info) Description 06/17/2015 Documentation [facility] [place] [address] [place] [address] Family Medicine, Physician [address] [place] [address] Social History Tobacco Use Types Packs/Day Years [...] on filedocumented in this encounter Care Teams Flake Miller Wheat And Oats Relationship Specialty Start Date End Date Lashell Cage MD PCP - General Pediatrics 10/06/19 06/18/22 documented as of this encounter
--- OUTSIDE RECORDS SUMMARY | 2025-02-15 21:05 | XMS_ITS | Encounter Summary ---
Author Organization [facility] Address [address] [place] [address] Phone Care Team Providers Care Wharfinger Chief Name Role Phone Lashell Cage MD Primary Care Provider [phone] Encounter Details Date Type Department Care Team (Late st Contact Info) Description 04/20/2016 Documentation [facility] [place] [address] [place] [address] Family Medicine, Physician [address] [place] [address] Social History Tobacco Use Types Packs/Day Years [...] on filedocumented in this encounter Care Teams Wharfinger Chief Relationship Specialty Start Date End Date Lashell Cage MD PCP - General Pediatrics 10/06/19 06/18/22 documented as of this encounter
--- OUTSIDE RECORDS SUMMARY | 2025-02-15 21:05 | XMS_ITS | Encounter Summary ---
Author Organization [facility] Address [address] [place] [address] Phone Care Team Providers Care Drip Molder Name Role Phone Lashell Cage MD Primary Care Provider [phone] Encounter Details Date Type Department Care Team (Late st Contact Info) Description 04/08/2016 Documentation [facility] [place] Medicine [address] [place] [address] Family Medicine, Physician [address] [place] [address] Social History Tobacco Use Types Packs/Day Years [...] on filedocumented in this encounter Care Teams Drip Molder Relationship Specialty Start Date End Date Lashell Cage MD PCP - General Pediatrics 10/06/19 06/18/22 documented as of this encounter
--- OUTSIDE RECORDS SUMMARY | 2025-02-15 21:05 | XMS_ITS | Encounter Summary ---
Author Organization [facility] Address [address] [place] [address] Phone Care Team Providers Care Tile Roofer Name Role Phone Lashell Cage MD Primary Care Provider [phone] Encounter Details Date Type Department Care Team (Late st Contact Info) Description 10/22/2016 Conversion Encounter [facility] - [address] [address] Social History Tobacco Use Types Packs/Day Years [...] on filedocumented in this encounter Care Teams Tile Roofer Relationship Specialty Start Date End Date Lashell Cage MD PCP - General Pediatrics 10/06/19 06/18/22 documented as of this encounter
--- OUTSIDE RECORDS SUMMARY | 2025-02-15 21:05 | XMS_ITS | Clinical Summary ---
Author Organization [facility] Address [address] [place] [address] Phone Care Team Providers Care Doctor Assistant Name Role Phone Unavailable Primary Care Provider [...] 06/07/2001, Additional history exists Influenza Vaccines (#1) 2024 12/10/19, 11/02/2019, 10/20/2018, Additional history exists COVID-19 Vaccine ( - 2024-2 6 season) 2024 Hepatitis B Vaccines Completed 09/14/2000, 01/07/2000, 1999 [...] Additional history exists Procedures * Due to [place] [employer] law, this organization might not be sharing sensitive test results. Procedure Name Priority Date/Time Associated Diagnosis Comments CHLAMYDIA AND GONORRHEA, AMPLIFIED Routine 10/26/2018 5:59 PM EDT Screen for sexually transmitted diseases from Last 3 Months or Most Recently Relevant to Health Maintenance Results * Due to [place] [employer] law, this organization might not be sharing sensitive test results. * Chlamydia and Gonorrhoea, Amplified (10/26/2018 5:59 PM EDT) Chlamydia Trachomatis, DNA Probe NEGATIVE (NEG) [facility] Comment: No Chlamydia Trachomatis RNA detected in this patient's sample (REFERENCE RANGE/NORMAL VALUE: NOT DETECTED) Note: This test uses train conductor- mediated amplification method to detect rRNA from C. Trachomatis URINE GC AMP PROBE NEGATIVE (NEG) [facility] Comment: No Neisseria Gonorrhoeae RNA detected in this patient's sample (REFERENCE RANGE/NORMAL VALUE: NOT DETECTED) NOTE: This test uses train conductor-mediated amplification method to detect rRNA from N.Gonorrhoeae. [...] without risk of sexual abuse. Consult the [facility] if needed. Contact phone number . Therapeutic failure or success cannot be determined with the Aptima Combo2 assay since nucleic acid may persist following appropriate antimicrobial therapy. The Centers for Disease Control and Prevention (CDC) recommends confirmatory retesting using culture or a different nucleic acid amplification test when positive results occur, if indicated. Testing performed or reported by [facility], a Service of [facility], [address] [place] [address] Urine 10/26/2018 5:59 PM EDT 10/26/2018 8:16 PM EDT us Andressa Valverde NP LAB MICROBIOLOGY - GENERAL OR DERABLES Final Result [facility] from Last 3 Months or Most Recently Relevant to Health Maintenance [place] [address] [place] [address] [employer] PPO
--- OUTSIDE RECORDS SUMMARY | 2025-02-15 21:05 | XMS_ITS | Encounter Summary ---
Author Organization [facility] Address [address] [place] [address] Phone Care Team Providers Care Expressive Music Therapist Name Role Phone Lashell Cage MD Primary Care Provider [phone] Encounter Details Date Type Department Care Team (Late st Contact Info) Description 07/30/2016 Documentation [facility] Family Medicine [address] [place] [address] Family Medicine, Physician [address] [place] [address] Social History Tobacco Use Types Packs/Day Years [...] on filedocumented in this encounter Care Teams Expressive Music Therapist Relationship Specialty Start Date End Date Lashell Cage MD PCP - General Pediatrics 10/06/19 06/18/22 documented as of this encounter
--- OUTSIDE RECORDS SUMMARY | 2025-02-15 21:05 | XMS_ITS | Clinical Summary ---
Author Organization [facility] [address] [place] [address] [place] [phone] Phone Care Team Providers Care Cooking Casing And Drying Supervisor Name Role Phone Kary Elias Primary Care [...] Asthma 11/20/2020 Lumbar spine scoliosis 11/20/2020 Immunizations Immunization Administration Dates Next Due HPV 9-valent (Gardisil) [...] 02/08/2022 Social Influencers of Health Screening 02/08/2022 Depression Screening 03/08/2024 COVID-19 Vaccine ( - season) 2024 Influenza Vaccine (#1) 2024 , 12/09/2020, 11/06/2020, Additional history exists Cervical Cancer Screening: Pap Smear 12/31/2024 12/31/2021 RSV Immunization Adult Patients (1 - 1-dose 75+ series) 11/21/2074 Hepatitis B Vaccines Completed 09/14/2000, 01/07/2000, 1999 HIB Vaccines Completed 03/09/2001, 06/06, 04/22/2000, Additional history exists IPV Vaccines Completed 12/26/2003, 04/2001, 04/22/2000, Additional history exists MMR Vaccines Completed 12/26/2003, 11/30/2000 Varicella Vaccines Completed 10/06/2010, 11/30/2000 Hepatitis A Vaccines Completed 12/20/2013, 10/07/19 Meningococcal ACWY Vaccine Completed 06/02/2017, Gonorrhea/Chlamydia Screening Discontinued 07/16/2021 HPV Vaccines Completed 07/16/2021, 09/06, 07/29/2020, Additional [...] Gonorrhea/Chlamydia Screening (07/16/2021) Gonorrhea/Chla mydia Screening abstracted us Historical Provider HEALTH MAINTENANCE Final Result from Last 3 Months or Most Recently Relevant to Health Maintenance Insurance [employer] [facility] Care Teams Cooking Casing And Drying Supervisor Relationship Specialty Start Date End Date Kary Elias PA [address] [place] [address] PCP - General 07/21/23
--- OUTSIDE RECORDS SUMMARY | 2025-02-15 21:05 | XMS_ITS | Encounter Summary ---
Author Organization [facility] Address [address] [place] [address] Phone Care Team Providers Care Engagement Quality Consultant Name Role Phone Lashell Cage MD Primary Care Provider [phone] Encounter Details Date Type Department Care Team (Late st Contact Info) Description 05/13/2016 Documentation [facility] [place] Family Medicine [address] [place] [address] Family Medicine, Physician [address] [place] [address] Social History Tobacco Use Types Packs/Day Years [...] on filedocumented in this encounter Care Teams Engagement Quality Consultant Relationship Specialty Start Date End Date Lashell Cage MD PCP - General Pediatrics 10/06/19 06/18/22 documented as of this encounter
== END 2025-02-15 11:32 | disposition home or self-care (01) ==
LOC: HO.LNP 11:31
PROVIDERS: PCP Pediatrics; Visit Provider Physician Assistant Medical
DX: R09.89 Other specified symptoms and signs involving the circulatory and respiratory systems (principal); Z76.0 Encounter for issue of repeat prescription; R11.2 Nausea with vomiting, unspecified; R19.7 Diarrhea, unspecified; A08.39 Other viral enteritis
CPT/HCPCS: 87637

== ENCOUNTER 2025-02-15 11:31 | Outpatient (AMB) | payer OTHER, SELFPAY ==
--- NOTE | 2025-02-15 11:32 | AM.OFFWIN_ITS ---
Intake Vital Signs 02/15/25 11:33 Height 5 ft 4 in Weight 174 lb BMI 29.9 BP 114/60 Blood Pressure Location Lt brachial Position Left Lateral Pulse 80 Pulse Source Pulse Oximeter Temp 98.1 F Temp Source Oral Pulse Oximetry (%) 96 Oxygen Delivery Method Room Air Intake Visit Reasons: EP vomiting diarrhea Intake Note: pt presents with diarrhea and vomiting starting this morning- not able to keep anything down Patient Tobacco Use Status: Never used Tobacco Allergies lidocaine Allergy (Intermediate, Verified 02/15/25 11:40) Tremors Do you need a note to return to daycare/school/sports/work: Yes HPI HPI Comments History of Present Illness Details History of Present Illness - The patient is a 24 year old female pr esenting with nausea and vomiting. 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 - She reports being unable to keep anyth ing down all morning and vomited twice at work after attempting to consume orange juice and cereal. - While the symptoms acutely began this morning, she has been feeling unwell for the past couple of days. - She has not had any more episodes of v omiting after the first two. - There is concern for influenza as it h as been circulating. - The patient also requested a refill fo r her control medication, AVN, as she has one pack left and is moving next month. Review of Systems - Constitutional: Denies fever. - Cardiovascular: Denies chest pain. - Respiratory: Denies shortness of breat h. - Gastrointestinal: Reports nausea and v omiting. Denies hematochezia. - Genitourinary: Denies pain or bleeding . Physical Exam General: Cooperative, healthy appearing, comfortable, no acute distress and well developed Orientation: Patient oriented x3 Respiratory: Normal respiratory effort and able to speak in complete sentences. Clear to auscultation bilaterally. No w/r/r noted. No chest pain, shortness of breath. Cardiovascular: Regular rate and rhythm. Normal S1 and S2. No m/r/g noted. GI: Normal to inspection. Hypoactive BS noted in all 4 quadrants. Soft to palp ation and nontender in all 4 quadrants. Negative Rovsing noted. Negative Arevalo's noted. No guarding or rebound tenderness noted. Negative CVA tenderness noted. No hepatomegaly noted. No masses or hernias appreciated. Skin: No rashes or lesions noted [facility] Social History Patient Tobacco Use Status: Never used Tobacco Review of Systems Const All systems reviewed & are unremarkable except as noted in HPI and below Physical Exam Vital Signs: Last Vital Signs Temp 98.1 F 02/15/25 11:33 Pulse 80 02/15/25 11:33 BP 114/60 02/15/25 11:33 Pulse Ox 96 02/15/25 11:33 Oxygen Delivery Method Room Air 02/15/25 11:33 BMI result Body Mass Index 29.9 Assessment & Plan Assessment & Plan (1) Nausea vomiting and diarrhea: Code(s): R11.2 - Nausea with vomiting, unspecified; R19.7 - Diarrhea, unspecified (2) Medication refill: Code(s): Z76.0 - Encounter for issue of repeat prescription Plan 1. Acute Viral Gastroenteritis - Recommended supportive care, advising the patient to let the illness run its course, which may include diarrhea. - A prescription for dissolvable Zofran for nausea will be sent. - Advised a bland diet, specifically the BRAT diet (bananas, applesauce, toast, and rice), and to push fluids like brianna nick, water, and Gatorade to maintain hydration. 2. Contraceptive Management - A 90-day supply (84 tablets) of control was requested by the patient due to an upcoming move. - A prescription will be sent to [facility] with the instruction for her - no substitution. Orders: Orders SARS-CoV2/FLU/RSV Today R09.89 - Other specified symptoms and signs involving the circulatory and respiratory systems Medications: New ondansetron 4 mg PO Q8H PRN 10 tabs 0RF nausea and vomiting Aviane 0.1-20 mg-mcg (levonorgestrel-ethinyl estrad) 1 tab PO DAILY 84 tabs 0RF 90 days NS Coding Level of Care Code Est Pt Level 3 (67155) Diagnoses Nausea vomiting and diarrhea R11.2; R19.7 Medication refill Z76.0
[2025-02-15 11:33] VITALS: BP 114/60; PULSE 80; TEMP 36.7; O2SAT 96; BMI 29.9
== END 2025-02-15 12:12 | disposition home or self-care (01) ==
PROVIDERS: PCP Pediatrics; Visit Provider Physician Assistant Medical
DX: R11.2 Nausea with vomiting, unspecified (principal); R19.7 Diarrhea, unspecified; Z76.0 Encounter for issue of repeat prescription